=== PATIENT | female | born 1975 | race Caucasian/White ===

== ENCOUNTER 2021-06-29 11:40 | Outpatient (CLI) | payer BC, SELFPAY ==
[2021-06-29 12:12] LABS: Hematocrit 39.3 % (37.0-47.0); Hemoglobin 13.9 g/dL (12.0-15.0); Mean Corpuscular HGB Conc 35.4 g/dl (32-36); Mean Corpuscular Hemoglobin 30.8 pg (26-34); Mean Corpuscular Volume 86.9 fl (80-100); Mean Platelet Volume 10.1 fl (7.4-10.4); Platelet Count Result 258 k/mm3 (150-375); Red Blood Count 4.52 M/mm3 (4.2-5.4); Red Cell Distribution Width 12.1 % (11.5-14.5); White Blood Count 7.5 K/mm3 (4.5-10.0)
[2021-06-29 12:33] LABS: Anion Gap 9 mmol/L (8-16); Blood Urea Nitrogen 7 mg/dL (7-17); Calcium 9.4 mg/dL (8.4-10.2); Carbon Dioxide 28 mmol/L (22-30); Chloride 100 mmol/L (98-107); Estimated Glomerular Filt Rate > 60; Glucose 115 mg/dL (65-110); Potassium 3.7 mmol/L (3.4-5.0); Sodium 137 mmol/L (137-145)
[2021-06-29 12:51] LABS: Hemoglobin A1C 6.8 % (<5.7)
== END 2021-06-29 11:41 | disposition home or self-care (01) ==
PROVIDERS: PCP Internal Medicine; Visit Provider Surgery Plastic and Reconstructive Surgery
DX: Z01.812 Encounter for preprocedural laboratory examination (principal); Z51.81 Encounter for therapeutic drug level monitoring; Z79.899 Other long term (current) drug therapy
CPT/HCPCS: 36415; 80048; 83036; 85027

== ENCOUNTER 2021-07-27 08:32 | Outpatient (CLI) | payer BC, SELFPAY ==
--- NOTE | 2021-07-27 08:37 | ECG_ITS ---
Measurements Intervals [place] Rate: 74 P: 57 WV: 164 QRS: 57 QRSD: 96 T: 70 QT: 381 QTc: 424 Interpretive Statements SINUS RHYTHM NORMAL ECG Electronically Signed On 07-27-2021 10:43:40 CRANE HOOKER by Hernandez Lkae D.O.
== END 2021-07-27 08:33 | disposition home or self-care (01) ==
PROVIDERS: PCP Internal Medicine; Visit Provider Anesthesiology
DX: Z01.818 Encounter for other preprocedural examination (principal)
CPT/HCPCS: 93005

== ENCOUNTER 2021-08-05 02:55 | Day surgery (SDC) | payer OTHER, SELFPAY ==
[2021-08-01 14:27] VITALS: BMI 30.5
--- NOTE | 2021-08-01 14:32 | PC.NURSE ---
Report to the Outpatient Waiting Room, entrance under the green pavilion located off [facility], at time _0600 on date 08/05/21 . OR Time: . - You and your visitor will be asked a series of questions to screen for COVID 19 for your protection. - A mask is required within the hospital. Preoperative COVID Testing Requirements: No COVID Test needed if: (proof is required; if not received patient will have Rapid Test prior to entry) - Patient has received COVID Vaccine at least 14 days prior to procedure date or - Patient has positive COVID test result within last 90 days of surgery date. COVID Test needed if above criteria is not met If not COVID vaccinated a COVID test must be conducted within 72 hours of surgery and patient is asked to isolate self from time of testing until procedure. You will go to the [facility] for your COVID testing. The [facility] is located at the corner of [address] [facility]. You will only be called if COVID results are positive and your surgeon may reschedule your elective surgery date. Patients may have clear liquids (water, carbonated beverages, clear teas, apple juice) until 3 hours prior to surgery with a maximum of 20 ounces. - No food from midnight until time of surgery - Infants may have breast milk until 4 hours before surgery, infant formula 6 hours prior to surgery. - Children will be allowed to drink immediately following surgery. If applicable, please bring a bottle or sippy cup to assist with drinking. Juice, water, soda, and popsicles are readily available. For infants on formula, please bring formula the day of surgery. Pacifiers are allowed. Take the following medications with a SIP of water the morning of surgery: ___NONE Medications to discontinue per physician NONE Date to take last dose Please no make-up, nail barbadian, hairspray, perfume, deodorant, or body powder the day of surgery. No jewelry (including any body piercings) or valuables the day of surgery, leave them at home. Please take a shower or bath the night before, or the morning of, surgery with an antibacterial soap. Wear comfortable, loose fitting clothing. Children are encouraged to wear pajamas. - Jewelry must be removed prior to entering the operating room. Rings and piercings that are not removed may be cut off. - The hospital will not accept responsibility for valuables. - Please leave all valuables, including medications, at home the day of surgery. If you are going home after surgery, a licensed high lift driver must drive you home. - NO public transportation without another adult. - We recommend that an adult stay with you for 24 hours following discharge. - We also recommend that you do not drive, make important decision, drink alcoholic beverages, or take any drugs that were not prescribed by your health care provider for at least 24 hours after your discharge time. For Pediatric surgeries, we recommend two adults accompany the child home (only one inside the building at this time). One visitor will be allowed to accompany the patient into the hospital. Patients visitor will be instructed to remain with patient at all times or leave the building. We will allow the visitor to come back to the postoperative area when patient is ready. Follow any additional instructions given to you from your surgeon. Telephone instructions given to __PATIENT and asked if any additional questions and then verbalized understanding. Patient advised to call surgeon office or pre surgery nurse liaison [phone] if any additional questions.
[2021-08-05] VITALS (10 sets, daily range): BP systolic 119–156; BP diastolic 67–96; PULSE 80–102; RESP 10–18; TEMP 35.9–36.8; O2SAT 95–100
--- NOTE | 2021-08-05 06:35 | P.PNAN_ITS ---
Anes - Initial Pre Proc Eval Procedure: Operation Date: 08/05/21 07:30 Proposed Procedures p Abdominoplasty, - Kyle Bojorquez MD s Liposuction Abdomen - Kyle Bojorquez MD Date/Time: 08/05/21 06:35 Surgeon: Kyle Bojorquez MD Pre Op Diagnosis: skin laxity, localized adiposity Patient Data Age: 46 Gender: F Height: 1.63 m Weight: 80.75 kg Allergies Allergy/AdvReac Type Severity Reaction Status Date / Time hydrocodone Allergy Unknown Itching Verified 08/05/21 06:36 Home Medications Medication Instructions Recorded Confirmed Type metformin 1,000 mg tablet 1,000 mg PO DAILY 01/06/21 08/01/21 History dulaglutide [Trulicity] 1.5 mg SUBCUT WEEKLY 07/18/21 08/01/21 History furosemide 20 mg PO PRN PRN 07/18/21 08/01/21 History glimepiride 1 mg PO QAM 07/18/21 08/01/21 History hydrochlorothiazide 12.5 mg PO DAILY 07/18/21 08/01/21 History lisinopril 20 mg PO DAILY 07/18/21 08/01/21 History rosuvastatin 10 mg PO DAILY 07/18/21 08/01/21 History carisoprodol 350 mg tablet 350 mg PO TID PRN #21 tablet 07/20/21 08/01/21 Rx docusate sodium 100 mg capsule 100 mg PO DAILY #14 cap 07/20/21 08/01/21 Rx ondansetron HCl 4 mg tablet 4 mg PO Q8H #21 tablet 07/20/21 08/01/21 Rx oxycodone-acetaminophen 5 mg-325 1 tablet PO Q6H PRN #30 tablet 07/20/21 08/01/21 Rx mg tablet Patient hx anesthesia problems: none Family hx anesthesia problems: none Results Review: All pre-operative results and documents have been reviewed as part of the pre-operative evaluation. [facility] Past Medical History Medical History (Updated 08/05/21 @ 06:36 by Nathan Stevenson MD) HTN (hypertension) Hyperlipidemia Surgical History Surgical History (Updated 08/05/21 @ 06:36 by Nathan Stevenson MD) History of cholecystectomy Hx of breast augmentation Hx of carpal tunnel repair Family History Family History Other Diabetes mellitus Heart disease Social History Social History Smoking status: Never smoker Alcohol intake: current Drinks per week: 2 Substance use type: does not use Living arrangements: with family Spiritual care concerns: No Anes - Eval Final PreProcedure Day of Procedure 08/05/21 06:35 Patient weight: obese Heart: regular rate and rhythm Lungs: clear to auscultation Airway: Mallampati scale class II Neurological: alert and oriented Last oral intake: >/= 8 hours ASA classification: III Emergent: no Anesthetic plan: proceed Anesthesia type and monitoring: general ETT and standard monitoring Results Review: All pre-operative results and documents have been reviewed as part of the pre-operative evaluation. Informed Consent: The patient's anesthetic plan and its attendant risks and benefits were discussed with the patient/family/POA. Questions were solicited and answers provided to the satisfaction of the patient/family/POA.
[2021-08-05 06:46] LABS: Urine Cotinine NEGATIVE
[2021-08-05 06:50] LABS: Glucose Point of Care 138 mg/dl (65-105)
[2021-08-05] MEDS: LACTATED RINGERS 1,000 ML 30 ML IV CONT (06:50)
--- NOTE | 2021-08-05 07:10 | WPDHPUPDATE1 ---
History and Physical Update Update Date/Time: 08/05/21 07:10 History and Physical has been reviewed, including an updated exam of the patient. There are NO changes in the patient's condition. Risks, benefits, and alternatives have been discussed and questions answered. Patient agrees to proceed with procedure.
--- NOTE | 2021-08-05 07:10 | W.PM.PROC2 ---
Procedure Note - Detailed Date of Procedure 08/05/21 Pre-op Diagnosis skin laxity, localized adiposity Post-op Diagnosis Same Procedure Performed 1. Progressive tension abdominoplasty. 2. Suction lipectomy abdomen / flank Surgeon Kyle Bojorquez MD Findings Lipoaspirate 3250 cc Tissue removed 1721 grams Description of Procedure They are here today for abdominoplasty / suction lipectomy. Previously and again today the risks, benefits, alternatives were discussed in extensive detail. I wanted them to be very realistic about the risks involved as well as expectations. She understands that she has significant visceral adiposity which will not be addressed by this procedure. We discussed aftercare and what to monitor for. I was very upfront about the risks of wound breakdown leading to loss of skin, open wounds, and need for additional procedures with permanent abdominal deformity. We discussed DVT/PE risks and management. This was a lengthy discussion making sure she knows her options, literature, and her participation. Made sure answered all of their questions to their satisfaction today and consent was obtained. They were marked in the preoperative holding area with their verification. The patient was taken to the operating room placed supine on the operating table. Anesthesia was provided by anesthesiology. A Schumacher catheter was started. They were prepped and draped in a standard sterile fashion in a 360 degree prep.. A surgical time-out was taken. I placed the patient in a flexed position to verify the upper and lower markings would reach. I then placed supine. A thorough abdominal examination was completed. Stab incisions were made and tumescent solution infiltrated. Suction lipectomy was completed of abdomen / flank based on S.A.F.E. technique using a 5mm basket cannula to a rolling pinch test and based on pre-operative planning. She was turned in lateral decubitus position during this procedure to maximize contour with care taken to protect patient during turns. A 10 blade was used to make the upper incision. I continued dissection down to the level of fascia. Elevated just what was necessary for repair of the diastasis. I then again flexed the bed to verify the upper skin flap would reach the lower markings without tension. Once verified I placed her supine once again and a 10 blade used to make the lower incision. I elevated up to level the umbilicus and left the umbilicus intact on a well-vascularized stalk. The intervening tissue was removed. A 2 mm blunt cannula with 0.5% bupivicaine was injected deep to the fascia bilaterally. I plicated the diastasis recti using 0 PDO stratafix barbed suture. This was in 2 separate layers using 2 separate sutures as well. I repaired around the umbilicus leaving plenty of room for well-vascularized stalk of the umbilicus with 2-0 PDS. I also repaired lateral to the rectus using two layers of 0 PDO stratafix. The patient was flexed and starting from superior to inferior began plication using 2-0 Vicryl to obliterate all space in a standard progressive tension fashion. At the umbilicus I marked out the location of the skin and inset this with 3-0 Monocryl and 4-0 Vicryl. I continued the remainder of the plication using 2-0 Vicryl until I reached my lower planned scar line. I trimmed any excess skin of the upper flap making sure this was a tension-free closure. I then approximated using a 3 point suture with 2-0 Vicryl followed by 3-0 stratafix ,running subcuticular 4-0 Monocryl, and tissue glue. Fluffs and an abdominal binder were placed. The patient was transferred to the bed in a flexed position. Awoken and taken to the PACU without difficulty. All instrument and sponge counts were correct at the end of the case. Estimated Blood Loss 75 Drains No Packing No Pathology None sent Complications No immediate complications Condition Stable Disposition PACU
[2021-08-05] MEDS: TRANEXAMIC ACID 1,000MG/ISO100 1,000 MG/100 ML BAG 200 MG IVPB (07:13)
[2021-08-05] MEDS: ceFAZolin 2 GM/D5W 50 ML 2 GM/50 ML BAG IVPB (07:28)
[2021-08-05] MEDS: LACTATED RINGERS IRRIG 1,000 ML, LIDOCAINE HCL 1% LOCAL INJ 50 ML, EPINEPHrine HCL INJ ... INFILTRATE ×2 (07:28→10:53)
[2021-08-05] MEDS: BUPIVACAINE/EPINEPHRINE 0.25% 10 ML VIAL 60 ML INFILTRATE (10:30)
[2021-08-05] MEDS: TRANEXAMIC ACID 1,000 MG/10 ML AMPUL 1000 MG IV PUSH (11:23)
[2021-08-05] MEDS: ceFAZolin SODIUM 1 GM VIAL IV PUSH (11:23)
--- NOTE | 2021-08-05 12:14 | SUR.PHASEI ---
1209: Simple mask removed.
[2021-08-05] MEDS: ONDANSETRON INJ 4 MG/2 ML VIAL IV PUSH (12:41)
[2021-08-05] MEDS: oxyCODONE HCL (*CRX) 5 MG TAB IR PO (13:24)
[2021-08-05 13:36] LABS: Glucose Point of Care 186 mg/dl (65-105)
[2021-08-05] MEDS: diphenhydrAMINE HCl INJ 50 MG/ML VIAL 25 MG IV PUSH (13:51)
[2021-08-05] MEDS: SCOPOLAMINE 1.5 MG PATCH TRANSDERM (13:54)
== END 2021-08-05 14:40 | disposition home or self-care (01) ==
PROVIDERS: PCP Internal Medicine; Visit Provider Surgery Plastic and Reconstructive Surgery
PROC: (CPT 15877; principal; 2021-08-05 07:30)
PROC: (CPT 15877; 2021-08-05 07:30)
DX: Z41.1 Encounter for cosmetic surgery (principal); L57.4 Cutis laxa senilis; E65 Localized adiposity; I10 Essential (primary) hypertension; E78.5 Hyperlipidemia, unspecified; E66.9 Obesity, unspecified; Z68.31 Body mass index [BMI] 31.0-31.9, adult; Z79.899 Other long term (current) drug therapy; Z79.84 Long term (current) use of oral hypoglycemic drugs
CPT/HCPCS: 15877; 15830; 15847; 80307; 82948; A9270; J0171; J0690; J1100; J1170; J1200; J2250; J2405; J2704; J3010; J7120

== ENCOUNTER 2024-11-11 14:27 | Outpatient (CLI) | payer BC, SELFPAY ==
--- NOTE | ~2024-11-11 | US_ITS ---
EXAMINATION: US carotid duplex BI DATE: 11/11/2024 15:05 INDICATION: Right carotid bruit TECHNIQUE: Grayscale, color Doppler, and pulsed Doppler images of the cervical carotid arteries were obtained. The degree of vessel stenosis is placed in one of the following categories: normal, <50%, 5 0-69%, >=70% but less than near-occlusion, near-occlusion, or total occlusion. Note that percent sten osis relative to normal distal artery lumen diameter is indirectly measured from velocity measurement s as described by Robert, et al. Radiology 2003; 229:340-346. Notes: Normal: Peak systolic velocity <125 centimeters/sec and no plaque <50%. Peak systolic velocity <125 ( EDV <40; ICA/CCA PSV ratio <2.0; used these factors only a tandem lesions or low cardiac output or co ntralateral disease) 50-69 %: PSV 125-230 (EDV 40-100; ratio 2-4) >= 70% but less than near occlusion: PSV greater than 230 (EDV > 100; ratio> 4.0) Near Occlusion: PSV that is variable; markedly narrowed lumen Occlusion: Absent flow on color/spectral Doppler and no lumen on rollins scale. COMPARISON: None. FINDINGS: RIGHT: The right common carotid artery (CCA) peak systolic velocity (PSV) is 72 cm/s. The right internal car otid artery (ICA) PSV is 82 cm/s. The right ICA end-diastolic velocity (EDV) is 39 cm/s. The right IC A/CCA PSV ratio is 1.1. The external carotid artery (ECA) PSV is 95 cm/s. There is antegrade flow in the right vertebral artery. LEFT: The left CCA PSV is 66 cm/s. The left ICA PSV is 87 cm/s. The left ICA EDV is 39 cm/s. The left ICA/C CA PSV ratio is 1.3. The ECA PSV is 122 cm/s. There is antegrade flow in the left vertebral artery. IMPRESSION: 1. Less than 50% stenosis in the right internal carotid artery by sonographic criteria. 2. Less than 50% stenosis in the left internal carotid artery by sonographic criteria. Reviewed, dictated and finalized at location B. IMPRESSION: 1. Less than 50% stenosis in the right internal carotid artery by sonographic c mason. 2. Less than 50% stenosis in the left internal carotid artery by sonographic cr haley.
--- OUTSIDE RECORDS SUMMARY | 2024-11-11 15:57 | XMS_ITS | Clinical Summary ---
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 Name Role Phone Aidan Harris MD Primary Care Provider Juliana Nguyen MD Unavailable [phone] Allergies No known active allergies Medications glimepiride (AMARYL) 1 mg tabletIndicatio ns:type 2 diabetes mellitus 0 9 Active hydroCHLOROthia zide (HYDRODIURIL) 12.5 mg tablet 2 9 Active lisinopril (PRINIVIL,ZESTR IL) 20 mg tablet TK 1 T PO BID 4 8 Active JANUVIA 100 mg tabletIndicatio ns:type 2 diabetes mellitus 3 9 Active metFORMIN (GLUCOPHAGE) 1,000 mg tablet TK 1 T PO BID 3 9 Active OneTouch Ultra Blue Test Strip strip USE TO TEST BLOOD SUGAR ONCE DAILY 9 Active rosuvastatin (CRESTOR) 10 mg tablet TK 1 T PO QD 9 Active estradiol-noret hindrone (ACTIVELLA) 1-0.5 mg per tablet Take 1 tablet by mouth daily [address] (PROTONIX) 40 mg EC tablet Take 1 tablet (40 mg total) by mouth daily 4 Active pravastatin (PRAVACHOL) 40 mg tablet take 1 tablet (40 mg) by oral route once daily Oral 1 Active Ozempic 2 mg/dose (8 mg/3 mL) pen injector injection INJECT SUBCUTANEOUS 2MG ONCE A WEEK 4 Active Active Problems Problem Noted Date Diagnosed Date Fibrocystic breast changes of both breasts 03/05 Surgical History Surgery Date Site/Laterality Comments MO BREAST AUGMENTATION WITH IMPLANT Breast Surgery Enlargement Procedure With Prosthetic Implant - (Added by TW Conv) MO CHOLECYSTECTOMY Cholecystectomy - (Added by TW Conv) Family History Medical History Relation Name Comments Breast cancer Mother's Sister Diabetes type II Other 1 Type II Mikki betes Mellitus - (Added by TW Conv) Hypertension Other 2 Hypertension - (Added by TW Conv) Heart disease Other 3 Heart Disease - (Added by TW Conv) Thyroid disease Other 4 Thyroid Diso rder - (Added by TW Conv) Relation Name Status Comments Mother's Sister Other 1 Other 2 Other 3 Other 4 Social History Tobacco Use Types Packs/Day Years Used Date Smoking Tobacco: Never Smokeless Tobacco: Never Tobacco Cessation:Counseling Given: Not Answered Alcohol Use Standard Drinks/Week Comments Yes 0 (1 standard drink = 0.6 oz pur e alcohol) rarely Comments Unknown Sex and Gender Information Value Date Recorded Sex Assigned at Not on file Legal Sex Female 10:53 PM RN 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 Gender Identity Not on file Sexual Orientation Not on file Obstetrics History Last Filed Vital Signs Vital Sign Reading Time Taken Comments Blood Pressure 130/86 01/22/2024 9:01 AM CDT Pulse 87 01/22/2024 9:01 AM CDT Temperature - - Respiratory Rate - - Oxygen Saturation - - Inhaled Oxygen Concentration - - Weight 71.7 kg (158 lb) 01/22/2024 9:01 AM CDT Height 165.1 cm (5' 5) 01/22/2024 9:01 AM CDT Body Mass Index 26.29 01/22/2024 9:01 AM CDT Plan of Treatment Health Maintenance Due Date Last Done Comments Cervical Cancer Screening 1974 Colon Cancer Screening-Colonoscopy 1974 Depression Screening 1974 Hepatitis C Screening 1974 DTaP/Tdap/Td Vaccine (1 - Tdap) 1985 Hepatitis B Screening 1992 Regular Well Visit/Exam 18-64 1992 Zoster Vaccine (1 of 2) 2024 Influenza Vaccine (Season Ended) 2025 05/03/2023, 03/29/2019, 04/02/2018 Breast Cancer Screening-Mammogram 02/11/2025 02/12/2024, 12/08/2022, 10/27/2021, Additional history exists Pneumococcal vaccine <65 Aged Out No longer eligible based on patient's age to complete this topic Procedures Procedure Name Priority Date/Time Associated Diagnosis Comments SCREENING MAMMOGRAM BILATERAL W SEGUNDO W IMPLANTS Schedule Routine, Read Routine (OP Routine) 02/12/2024 8:00 AM CDT Screening mammogram, encounter for from Last 3 Months or Most Recently Relevant to Health Maintenance Results * Screening Mammogram Bilateral W Segundo W Implants (02/12/2024 8:00 AM CDT) Anatomical Region Laterality Modality Breast Bilateral Mammography Narrative 02/13/2024 9:47 AM CDT Mammogram Technique: Bilateral Digital Breast Tomosynthesis, Bilateral C-view 2D Screening mammogram. Views obtained: bilateral craniocaudal; bilateral craniocaudal implant displaced; bilateral mediolateral oblique; and bilateral mediolateral oblique implant displaced. Computer Aided Detection was performed. Mammogram Findings: The present examination has been compared to prior imaging studies performed at [facility] on 08/01/2019, 08/11/2019, 09/08/2020, 10/27/2021 and 12/08/2022. There are scattered areas of fibroglandular density. There are bilateral sub-glandular saline implants. There are calcifications in both breasts. There are no significant changes from the prior study. There is no suspicious abnormality in either breast. Impression: There is no mammographic evidence of malignancy. Annual screening mammography is recommended. OVERALL FINAL ASSESSMENT: BI-RADS CATEGORY 2: Benign. Procedure Note Haven Hebert MD - 02/13/2024 Mammogram Technique: Bilateral Digital Breast Tomosynthesis, Bilateral C-view 2D Screening mammogram. Views obtained: bilateral craniocaudal; bilateralcraniocaudal implant displaced; bilateral mediolateral oblique; and bilateral mediolateral oblique implant displaced. Computer Aided Detection was performed. Mammogram Findings: The present examination has been compared to prior imaging studies performed at [facility] on 08/01/2019, 08/11/2019,09/08/2020, 10/27/2021 and 12/08/2022. There are scattered areas of fibroglandular density. There are bilateral sub-glandular saline implants. There are calcifications in both breasts. There are no significantchanges from the prior study. There is no suspicious abnormality in either breast. Impression: There is no mammographic evidence of malignancy. Annual screening mammography is recommended. OVERALL FINAL ASSESSMENT: BI-RADS CATEGORY 2: Benign. 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
--- OUTSIDE RECORDS SUMMARY | 2024-11-11 15:57 | XMS_ITS | Referral Summary ---
Author Organization [facility] Address [address] [place] [address] Care Team Providers Care Sand Analyst Name Role Phone Aidan Harris MD Primary Care Provider Juliana Nguyen MD Unavailable [phone] Allergies No known active allergies Medications glimepiride [...] Fibrocystic breast changes of both breasts 03/05 Social History Tobacco Use Types Packs/Day Years Used Date Smoking Tobacco: Never Smokeless Tobacco: Never Tobacco Cessation:Counseling Given: Not Answered Alcohol Use Standard Drinks/Week Comments Yes 0 (1 standard drink = 0.6 oz pur e alcohol) rarely Comments Unknown Sex and Gender Information Value Date Recorded Sex Assigned at Not on file 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 [...] Most Recently Relevant to Health Maintenance Insurance [facility] Care Teams Sand Analyst Relationship Specialty Start Date End Date Aidan Harris MD PCP - General 02/21/17 Juliana Nguyen MD [address] [address] Referring Physician Gynecology 10/27/21
--- OUTSIDE RECORDS SUMMARY | 2024-11-11 15:57 | XMS_ITS | Patient Health Record ---
Author Organization [facility] Address [address] [place] [address] Care Team Providers Care Cena Name Role Phone Aidan Harris MD Primary Care Provider Marlon Vizcarra MD Unavailable Unavailable Reason For Referral No Information Medications Medication SIG (Take, Route, Frequency, Duration) Notes Start Date End Date Status hydroCHLOROthiazide Active Glimepiride Active metFORMIN HCl Active Livalo Active OTC/Vitamins Vitamin D, Potassium Cholride, Magnesium Active Lisinopril Active Social History Tobacco Use: Social History Observation Description Date Details (start date - stop date) Never Smoker NA - NA Tobacco Use/Smoking Question Answer Notes Are you a nonsmoker Problems Problem Type SNOMED Code ICD Code Onset Dates Problem Status W/U Status Risk Notes Problem 096757582 Fatty liver (K76.0) Active confirmed Problem 126615083 Elevated transaminase level (R74.0) Active confirmed Problem 529530989 Type 2 diabetes mellitus without complication, without long-term current use of insulin (E11.9) Active confirmed Problem 941833090829656 Obesity (BMI 30.0-34.9) (E66.9) Active confirmed Plan Of Treatment Pending Test Test Name Order Date TISSUE TRANSGLUTAMINASE AB, IGA 03/28/20 17 [id number] 03/28/2017 CERULOPLASMIN 03/28/2017 ACTIN (SMOOTH MUSCLE) ANTIBODY (IGG) FERRITIN 03/28/2017 Immunoglobulin A, Qn, Serum 03/28/2017 Antinuclear Antibodies Direct 03/28/2017 t-Transglutaminase (tTG) IgG 03/28/2017 Hepatic Function 03/28/2017 Insurance Providers Payer Name Payer Address Payer Phone Subscriber Number Group Number Insured Name Patient Relationship to Insured Coverage Start Date Coverage End Date [employer] PPO E2 [address] [place] [address] [id number] Ifeanyi Jackson Spouse - patient is the spouse of the insured Medical (General) History Medical History History ICD Code High blood Pressure Diabetes Elevated liver enzymes Surgical History Surgery Date(Month/Year) Carpal Tunnel D&C Tubal Ligation Breast Augmentation Cholecystectomy
--- OUTSIDE RECORDS SUMMARY | 2024-11-11 15:57 | XMS_ITS | Patient Health Record ---
Author Organization [facility] Address [address] [place] [address] Support Name Relationship Address Phone Prudence Jackson Guarantor Unknown Allergies No Known Allergies Reason For Referral No Information Medications Medication SIG (Take, Route, Frequency, Duration) Notes Start Date End Date Status Pravastatin Sodium 40 MG take 1 tablet ( 40 mg) by oral route once daily Oral 1 Active Lisinopril 20 MG take 1 tablet (20 mg ) by oral route once daily Oral 1 Active hydroCHLOROthiazide 12.5 MG take 1 table t (12.5 mg) by oral route 2 times per day Oral 2 Active Problems Problem Type SNOMED Code ICD Code Onset Dates Problem Status W/U Status Risk Notes Problem Essential hypertensi on (56105438) Essential (primary) hypertension (I10) Active confirmed Problem Pure hypercholesterolemia (269625445) Pure hypercholester olemia, unspecified (E78.00) Active confirmed Plan Of Treatment No Information Insurance Providers Payer Name Payer Address Payer Phone Subscriber Number Group Number Insured Name Patient Relationship to Insured Coverage Start Date Coverage End Date [place] [address] [place] [address] [id number] Prudence Jackson Self - patient is the insured 3 Medical (General) History Surgical History Surgery Date(Month/Year) Carpal tunnel release; 2012-10-31 Tubal ligation; 2012-10-31 cholecystectomy; 2012-10-31
--- OUTSIDE RECORDS SUMMARY | 2024-11-11 15:57 | XMS_ITS | Data Portability ---
Author Organization [place] [facility] [employer], Main Office [place] [address] [place] [address] Assessment No assessment recorded. Plan of Treatment Reminders Order Date Submit Date Provider Last Modified By Organization Details Last Modified Time Details Appointments None recorded. Lab lipoprotein (A), serum 2024 025 [facility], [address] , [place], [address], 5 09:58:41 vitamin B12 + folate, serum or blood 2024 025 [email or web address] [facility], [address], [place], [address], 5 09:58:41 vitamin D, 25-hydroxy, total, serum 2023 024 [id number] [facility], [address], [place], [address], 4 16:05:46 HbA1c (hemoglobin A1c), blood 2023 024 [id number] [facility], [address], [place], [address], 4 16:05:46 microalbumi n, urine 2023 024 [id number] [facility], [address], [place], [address], 4 16:05:46 lipid panel, serum 2023 024 [id number] [facility], [address], [place], [address], 4 16:05:45 CMP, serum or plasma 2023 024 [facility], [address], [place], [address], 4 16:05:45 TSH, serum or plasma 2023 024 [id number] [facility], [address], [place], [address], 4 16:05:45 T4, free, serum 2023 024 [facility], [address], [place], [address], 4 16:05:45 CBC w/ auto diff 2023 024 [id number] [facility], [address], [place], [address], 4 16:05:45 lipid panel, serum 2022 023 [facility], [address], [place], [address], 3 17:03:11 CMP, serum or plasma 2022 023 [facility], [address], [place], [address], 3 17:03:11 TSH, serum or plasma 2022 023 [id number] [facility], [address], [place], [address], 3 17:03:11 T4, free, serum 2022 023 [id number] [facility], [address], [place], [address], 3 17:03:11 CBC w/ auto diff 2022 023 [facility], [address], [place], [address], 3 17:03:12 HbA1c (hemoglobin A1c), blood 2022 023 [id number] [facility], [address], [place], [address], 3 17:03:12 microalbumi n/creatinin e, mass ratio, urine 2022 023 [id number] [facility], [address], [place], [address], 3 17:03:12 Referral None recorded. Procedures None recorded. Surgeries None recorded. Imaging None recorded. Medication Orders methylpredn isolone 4 mg tablets in a dose pack [address] [facility] [address] [place] [address] [id number], [address], [place], [place], [id number], 4 10:36:17 Patient TargetsNo targets recorded. Patient Instructions Encounter Date Encounter Id Patient Instructions Last Modified By Organization Details Last Modified Time 05/03/2023 [id number] risk assessment* [email or web address] Not availabl e 05/03/2023 11:45:39 INFLUENZA VACCIN E Recommended today, but patient declined Ordered Yash lima will get at local pharmacy/health department Patient has egg allergy Next vaccination to be given fall of Next vaccination to be given fall of __ TD/TDAP Patient will get at local pharmacy/health department PNEUMONIA VACCINE Recommended at age 65 SHINGLES Patient will get at local pharmacy/health department MAMMOGRAM: Last Mammogram No screening necessary patient is up to date DEXA SCAN No screening indicated CERVICAL SCREENING/PELVIC EXAMINATION No screening necessary patient is up to date COLORECTAL SCREENING: Last Colonoscopy No screening necessary patient is up to date DEPRESSION SCREENING Negative BMI Overweight try to lose 10% of your body weight NUTRITION Heart Healthy Diet PHYSICAL ACTIVITY Need more exercise/physical activity VISION Recommended today ALCOHOL USE Occasional/Social Use TOBACCO USE non smoker LUNG CANCER SCREENING Non Smoker-not indicated SEXUALLY ACTIVE HEPATITIS C SCREENING Not indicated GLUCOSE SCREENING Ordered Not needed Known Diabetic up to date LIPID SCREENING Ordered Not needed Diagnosis of Hyperlipidemia up to date [email or web address] Not available 05/03/2023 11:31:16 Wellness evaluat ion risk assessment stable. Follow-up for hypertension-type 2 diabetes- hyperlipidemia. Clinically stable. Doing well otherwise hemoglobin A1c is under good control. Last one was 6.3 recent cholesterol is 134 HDL 49 LDL of 50. Will continue on current Rx. Check blood work consisting of CBC, CMP, lipid, thyroid, hemoglobin A1c and microalbumin. Continue on current Rx and follow-up in six months. Portions of the record may have been created with voice recognition software. Occasional wrong-word or qtabc-n-osut substitutions may have occurred due to the inherent limitations of voice recognition software. Read the chart carefully and recognize, using context, where substitutions have occurred. [email or web address] Not available 05/03/2023 11:45:18 10/31/2023 [id number] Essential hypertension, hyperlipidemia and type 2 diabetes all clinically stable doing well. Will continue on current medications. Will check blood work on next visit. Is followed on a regular basis by her stitcher special machine. Will continue on current medications. Follow-up in six months. Next Appointment: 6 Months Approximate Date: 04/28/2024 Portions of the record may have been created with voice recognition software. Occasional wrong-word or joidi-z-fjir substitutions may have occurred due to the inherent limitations of voice recognition software. Read the chart carefully and recognize, using context, where substitutions have occurred. [email or web address] Not available 10/31/2023 11:09:00 01/02/2024 [id number] Possible trigemi nal neuralgia. Will give trial of a Medrol Dosepak. If no improvement will need to consider further evaluation possibly implementing on additional medication more specific for trigeminal neuralgia. Will check a sedimentation rate even though she has no other findings suggestive of temporal arteritis. Additional Orders and/or Directives: 1. If any rash beginning to recur or the pain becomes more severe let us know immediately. Keep Appointment: Sun 09:40 AM [place] Portions of the record may have been created with voice recognition software. Occasional wrong-word or zkmid-f-wwjw substitutions may have occurred due to the inherent limitations of voice recognition software. Read the chart carefully and recognize, using context, where substitutions have occurred. [email or web address] Not available 01/02/2024 10:19:42 04/30/2024 [id number] Follow-up for hypertension, hyperlipidemia, type 2 diabetes, GERD. All clinically stable. Does need a Cologuard test. Check a CBC, CMP, lipid, thyroid, vitamin-D level, hemoglobin A1c and microalbumin. Was given a flu shot today. Otherwise doing well. Will continue on current medications follow-up in six months. Additional Orders - Directives - Recommendations 1. Cologuard Follow Up: 6 Months Approximate Date: 10/27/2024 Portions of the record may have been created with voice recognition software. Occasional wrong-word or zlipw-o-tkzs substitutions may have occurred due to the inherent limitations of voice recognition software. Read the chart carefully and recognize, using context, where substitutions have occurred. Created: Aidan Harris M.D. 04.30.2024 09:49 AM Not available 04/30/2024 10:50:00 10/22/2024 [id number] [facility] follow-up welcome yearly exam as well as history of hypertension, hyperlipidemia type 2 diabetes. He is clinically stable. Do anything new on physical examination there is a questionable and I state questionable right carotid bruit. Does have a very stron family history of vascular disease including strokes fairly young ages. Will check a Doppler as well as a lipoprotein a level. Will also check a B12 since this also send been some generalized fatigue. Did have a thyroid exam back in July which was normal. Additional Orders - Directives - Recommendations 1. Carotid ultrasound for faint right carotid bruit Follow Up: 4 Months Approximate Date: 02/19/2025 Portions of record are template driven. When necessary additional context will be provided. Additionally some portions have been created with voice recognition software. Occasional wrong-word or bxygu-r-chsx substitutions may have occurred due to the inherent limitations of voice recognition software. Read the chart carefully and recognize, using context, where substitutions may have occurred. Created: Aidan Harris M.D. 10.22.2024 10:25 AM [email or web address] Not available 10/22/2024 11:25:09 Reason for Referral None Reported. Results Created Date Observation Date Name Description Value Unit Range Abnormal Flag Note LastModifiedBy Organization Detail LastModifiedTime 05/23/20 23 05/23/2023 CBC/C OMPLE TE BLD COUNT W/DIF F white blood cells 5.6 x10'3 /uL 4.2-10 .8 Not Available [facility] (Lab) [address] [place], [address], 05/23/2023 13:12:05 05/23/20 23 05/23/2023 CBC/C OMPLE TE BLD COUNT W/DIF F red blood cells 4.17 x10'6 /uL 3.80-5 .20 Not Available [facility] (Lab) [address] [place], [address], 05/23/2023 13:12:05 05/23/20 23 05/23/2023 CBC/C OMPLE TE BLD COUNT W/DIF F hemoglobin 12.8 g/dL 12.0-1 5.6 Not Available [facility] (Lab) [address] [place], [address], 05/23/2023 13:12:05 05/23/20 23 05/23/2023 CBC/C OMPLE TE BLD COUNT W/DIF F hematocrit 37.4 % 35.7-4 5.7 Not Available [facility] (Lab) [address] [place], [address], 05/23/2023 13:12:05 05/23/20 23 05/23/2023 CBC/C OMPLE TE BLD COUNT W/DIF F mean red cell volume 89.7 fL 82.0-9 9.0 Not Available [facility] (Lab) [address] [place], [address], 05/23/2023 13:12:05 05/23/20 23 05/23/2023 CBC/C OMPLE TE BLD COUNT W/DIF F mean red cell hemoglobin 30.7 pg 27.0-3 3.0 Not Available [facility] (Lab) [address] [place], [address], 05/23/2023 13:12:05 05/23/20 23 05/23/2023 CBC/C OMPLE TE BLD COUNT W/DIF F mean RBC HGB concentratio n 34.2 g/dL 31.0-3 6.0 Not Available [facility] (Lab) [address] [place], [address], 05/23/2023 13:12:05 05/23/20 23 05/23/2023 CBC/C OMPLE TE BLD COUNT W/DIF F red cell distribution width 12.1 % 11.8-1 5.5 Not Available [facility] (Lab) [address] [place], [address], 05/23/2023 13:12:05 05/23/20 23 05/23/2023 CBC/C OMPLE TE BLD COUNT W/DIF F platelets 225 x10'3 /uL 150-40 0 Not Available [facility] (Lab) [address] [place], [address], 05/23/2023 13:12:05 05/23/20 23 05/23/2023 CBC/C OMPLE TE BLD COUNT W/DIF F mean platelet volume 10.9 fL 9.0-12 .4 Not Available [facility] (Lab) [address] [place], [address], 05/23/2023 13:12:05 05/23/20 23 05/23/2023 CBC/C OMPLE TE BLD COUNT W/DIF F neutrophils 60.4 % 39.0-7 2.0 Not Available [facility] (Lab) [address] [place], [address], 05/23/2023 13:12:05 05/23/20 23 05/23/2023 CBC/C OMPLE TE BLD COUNT W/DIF F lymphocytes 32.0 % 16.0-4 7.0 Not Available [facility] (Lab) [address] [place], [address], 05/23/2023 13:12:05 05/23/20 23 05/23/2023 CBC/C OMPLE TE BLD COUNT W/DIF F monocytes 5.5 % 5.0-12 .0 Not Available [facility] (Lab) [address] [place], [address], 05/23/2023 13:12:05 05/23/20 23 05/23/2023 CBC/C OMPLE TE BLD COUNT W/DIF F eosinophils 1.4 % 1.0-7. 0 Not Available [facility] (Lab) [address] [place], [address], 05/23/2023 13:12:05 05/23/20 23 05/23/2023 CBC/C OMPLE TE BLD COUNT W/DIF F basophils 0.5 % 0.0-2. 0 Not Available [facility] (Lab) [address] [place], [address], 05/23/2023 13:12:05 05/23/20 23 05/23/2023 CBC/C OMPLE TE BLD COUNT W/DIF F immature granulocytes 0.2 % 0.00-0 .50 Not Available [facility] (Lab) [address] [place], [address], 05/23/2023 13:12:05 05/23/20 23 05/23/2023 CBC/C OMPLE TE BLD COUNT W/DIF F neutrophils, absolute count 3.39 x10'3 /uL 1.5-8. 0 Not Available [facility] (Lab) [address] [place], [address], 05/23/2023 13:12:05 05/23/20 23 05/23/2023 CBC/C OMPLE TE BLD COUNT W/DIF F lymphocytes, absolute count 1.80 x10'3 /uL 1.07-3 .43 Not Available [facility] (Lab) [address] [place], [address], 05/23/2023 13:12:05 05/23/20 23 05/23/2023 CBC/C OMPLE TE BLD COUNT W/DIF F monocytes, absolute count 0.31 x10'3 /uL 0.29-0 .99 Not Available [facility] (Lab) [address] [place], [address], 05/23/2023 13:12:05 05/23/20 23 05/23/2023 CBC/C OMPLE TE BLD COUNT W/DIF F eosinophils, absolute count 0.08 x10'3 /uL 0.02-0 .53 Not Available [facility] (Lab) [address] [place], [address], 05/23/2023 13:12:05 05/23/20 23 05/23/2023 CBC/C OMPLE TE BLD COUNT W/DIF F basophils, absolute count 0.03 x10'3 /uL 0.01-0 .08 Not Available [facility] (Lab) [address] [place], [address], 05/23/2023 13:12:05 05/23/20 23 05/23/2023 CBC/C OMPLE TE BLD COUNT W/DIF F immature granulocytes ,absolute 0.01 x10'3 /uL 0.00-0 .05 Not Available [facility] (Lab) [address] [place], [address], 05/23/2023 13:12:05 05/23/20 23 05/23/2023 CBC/C OMPLE TE BLD COUNT W/DIF F nucleated red blood cells 0.0 % -0 Not Available [facility] (Lab) [address] [place], [address], 05/23/2023 13:12:05 12/20/20 23 05/23/2023 CBC/C OMPLE TE BLD COUNT W/DIF F NRBC# 0.00 x10'3 /uL Not Available [facility] (Lab) [address] [place] [address], [address], 05/23/2023 13:12:05 05/23/20 23 05/23/2023 LIPID PANEL cholesterol 110 mg/dL 140-19 9 low NIH ITALO NSUS RECOM MENDA TION FOR CARLOS STERO L: ADULT CHILD LOW RISK: <200 <170 BORDE RLINE : <200- 239 ----- HIGH RISK: >240 >200 Not Available [facility] (Lab) [address] [place] [address], [address], 05/23/2023 13:25:07 05/23/20 23 05/23/2023 LIPID PANEL triglyceride s 110 mg/dL 0-150 NIH ITALO NSUS REPOR T RECOM MENDA TION FOR TRIGL YCERI TISHA: ADULT CHILD LOW RISK: <150 ----- BODER LINE: 150-1 99 ----- HIGH RISK: >200 ----- Not Available [facility] (Lab) [address] [place] [address], [address], 05/23/2023 13:25:07 05/23/20 23 05/23/2023 LIPID PANEL HDL cholesterol 40 mg/dL 40- Not Available [facility] (Lab) [address] [place] [address], [address], 05/23/2023 13:25:07 05/23/20 23 05/23/2023 LIPID PANEL LDL cholesterol, calculated 48 mg/dL 0-130 NIH ITALO NSUS REPOR T RECOM MENDA TIONS FOR LDL: ADULT CHILD LOW RISK <130 <110 (OPTI MAL LDL) <100 ----- BORDE RLINE : 130-1 59 ----- HIGH RISK: >160 >130 A TRIGL YCERI DE RESUL T >400 INVAL IDATE S THE CALCU LATIO N FOR LDL FRACT IONAT ION - THE LDL RESUL T WILL NOT BE REPOR SHARLENE. Not Available [facility] (Lab) [address] [place], [address], 05/23/2023 13:25:07 05/23/20 23 05/23/2023 COMPR EHENS RAMIREZ METAB OLIC PANEL sodium 140 mmol/ L 137-14 5 Not Available [facility] (Lab) [address] [place], [address], 05/23/2023 13:25:11 05/23/20 23 05/23/2023 COMPR EHENS RAMIREZ METAB OLIC PANEL potassium 4.0 mmol/ L 3.5-5. 1 Not Available [facility] (Lab) [address] [place], [address], 05/23/2023 13:25:11 05/23/20 23 05/23/2023 COMPR EHENS RAMIREZ METAB OLIC PANEL chloride 102 mmol/ L 98-107 Not Available [facility] (Lab) [address] [place], [address], 05/23/2023 13:25:11 05/23/20 23 05/23/2023 COMPR EHENS RAMIREZ METAB OLIC PANEL carbon dioxide 25 mmol/ L 22-30 Not Available [facility] (Lab) [address] [place], [address], 05/23/2023 13:25:11 05/23/20 23 05/23/2023 COMPR EHENS RAMIREZ METAB OLIC PANEL anion gap 17.0 mmol/ L 14-22 Not Available [facility] (Lab) [address] [place], [address], 05/23/2023 13:25:11 05/23/20 23 05/23/2023 COMPR EHENS RAMIREZ METAB OLIC PANEL glucose 118 mg/dL 70-99 high Not Available [facility] (Lab) [address] [place], [address], 05/23/2023 13:25:11 05/23/20 23 05/23/2023 COMPR EHENS RAMIREZ METAB OLIC PANEL BUN 9 mg/dL 8-19 Not Available [facility] (Lab) [address] [place], [address], 05/23/2023 13:25:11 05/23/20 23 05/23/2023 COMPR EHENS RAMIREZ METAB OLIC PANEL creatinine 0.67 mg/dL 0.66-1 .25 Not Available [facility] (Lab) [address] [place], [address], 05/23/2023 13:25:11 05/23/20 23 05/23/2023 COMPR EHENS RAMIREZ METAB OLIC PANEL GFR >60 Refer ence Range : [place] [facility] GFR Healt hy Adult : >60 mL/mi n/1.7 3 m2 Chron ic Kidne y Disea se: 15-60 mL/mi n/1.7 3 m2 Kidne y Failu re: <15/m L/min /1.73 m2 www.n iddk. nih.g ov The MDRD study equat ion has not been valid ated in child broderick <18 years of age; pregn ant women ; the elder ly >85 years of age; or in some racia l or ethni c subgr oups, such as de nics. Outsi de the valid ated chastity eters , estim ated GFR is less accur ate, requi ring clini mathew judgm ent on a case- by-ca se basis . Clini mathew inter preta tion for other races and ages must be made by the clini jimbo. The MDRD study equat ion has not been valid ated for the evalu ation of serum creat inine relat ed to nutri ciera l statu s or medic ation usage . For perso ns <18 years of age, a pedia tric GFR calcu lator is avail able on the F websi te: https ://keena w.alyssa gauthiery.o rg/pr ofess ional s/kdo qi/gf r_cal culat or Not Available [facility] (Lab) [address] [place], [address], 05/23/2023 13:25:11 05/23/20 23 05/23/2023 COMPR EHENS RAMIREZ METAB OLIC PANEL alkaline phosphatase 87 U/L 38-126 Not Available [facility] (Lab) [address] [place], [address], 05/23/2023 13:25:11 05/23/20 23 05/23/2023 COMPR EHENS RAMIREZ METAB OLIC PANEL alanine aminotransfe rase 34 U/L 0-35 Not Available [facility] (Lab) [address] [place], [address], 05/23/2023 13:25:11 05/23/20 23 05/23/2023 COMPR EHENS RAMIREZ METAB OLIC PANEL aspartate aminotransfe rase 35 U/L 15-37 Not Available [facility] (Lab) [address] [place], [address], 05/23/2023 13:25:11 05/23/20 23 05/23/2023 COMPR EHENS RAMIREZ METAB OLIC PANEL bilirubin, total 1.00 mg/dL 0.20-1 .30 Not Available [facility] (Lab) [address] [place], [address], 05/23/2023 13:25:11 05/23/20 23 05/23/2023 COMPR EHENS RAMIREZ METAB OLIC PANEL calcium 9.6 mg/dL 8.4-10 .2 Not Available [facility] (Lab) [address] [place], [address], 05/23/2023 13:25:11 05/23/20 23 05/23/2023 COMPR EHENS RAMIREZ METAB OLIC PANEL total protein 7.7 g/dL 6.3-8. 2 Not Available [facility] (Lab) [address] [place], [address], 05/23/2023 13:25:11 05/23/20 23 05/23/2023 COMPR EHENS RAMIREZ METAB OLIC PANEL albumin 4.5 g/dL 3.4-5. 0 Not Available [facility] (Lab) [address] [place], [address], 05/23/2023 13:25:11 05/23/20 23 05/23/2023 COMPR EHENS RAMIREZ METAB OLIC PANEL globulin 3.2 g/dL 2.6-4. 2 Not Available [facility] (Lab) [address] [place], [address], 05/23/2023 13:25:11 05/23/20 23 05/23/2023 COMPR EHENS RAMIREZ METAB OLIC PANEL A/G ratio 1.4 ratio 1.0-2. 0 Not Available [facility] (Lab) [address] [place], [address], 05/23/2023 13:25:11 05/23/20 23 05/23/2023 T4 FREE free T4 1.06 NG/dL 0.78-2 .19 Not Available [facility] (Lab) [address] [place], [address], 05/23/2023 13:33:29 05/23/20 23 05/23/2023 TSH thyroid-stim ulating hormone 1.980 uIU/m L 0.465- 4.680 Not Available [facility] (Lab) [address] [place], [address], 05/23/2023 13:34:50 05/23/20 23 05/23/2023 HEMOG LOBIN A1C HA1C 5.5 % 4.0-6. 0 Diabe jessica Scree carlo Crite jim: <5.7% Consi stent with absen ce of diabe jessica 5.7-6 .4% Consi stent with incre ased risk for diabe jessica (pred iabet es) >OR=6 .5% Consi stent with diabe jessica REFER ENCE: Diabe jessica Care 2016, 39(Tay ppl.1 ):s13 -s22 Not Available [facility] (Lab) [address] [place], [address], 05/23/2023 14:46:10 05/23/20 23 05/23/2023 MICRO ALBUM N RNDM W/CRE AT RATIO ur creat 312.50 mg/dL REFER ENCE RANGE NOT ESTAB LISHE D FOR RANDO M URINE CREAT ININE Not Available [facility] (Lab) [address] [place], [address], 05/23/2023 20:05:31 05/23/20 23 05/23/2023 MICRO ALBUM N RNDM W/CRE AT RATIO microalbumin , urine 19.7 mg/L 0.0-16 .6 high Not Available [facility] (Lab) [address] [place], [address], 05/23/2023 20:05:31 05/23/20 23 05/23/2023 MICRO ALBUM N RNDM W/CRE AT RATIO microalbumin /creatinine ratio 6 mcg/m g 0-29 THE AMERI CAN DIABE JESSICA ASSOC IATIO N DEFIN ES ABNOR MALIT IES IN ALBUM IN EXCRE TION FOLLO WS: CATEG ORY RESUL T (MCG/ MG CREAT ININE ) KRISTINE L <30 MICRO ALBUM INURI A 30-29 9 CLINI MATHEW ALBUM INURI A > OR = 300 THE ADA RECOM MENDS THAT 2 OF 2 SPECI MENS COLLE CTED WITHI N A 3- TO 6-MON TH PERIO D BE ABNOR MAL BEFOR E CONSI DANGELO G A PATIE NT TO HAVE CROSS ED ONE OF THESE DIAGN OSTIC THRES HOLDS . REFER ENCE: DIABE JESSICA CARE, VOL. 26: S94-S 96, 2002 Not Available [facility] (Lab) [address] [place], [address], 05/23/2023 20:05:31 05/13/20 24 05/13/2024 COLOG UARD cologuard result reportable NEGATI VE negati ve normal NEGAT RAMIREZ TEST RESUL T. A negat ramirez Colog uard resul t indic ates a low likel ihood that a color ectal cance r (CRC) or advan jeremiah adeno ma (sasha omato us polyp s with more advan jeremiah pre-m align ant featu res) is prese nt. The [facility] e that a perso n with a negat ramirez Colog uard test has a color ectal cance r is less than 1 in 1500 (nega tive predi ctive value >99.9 %) or has an advan jeremiah adeno ma is less than 5.3% (nega tive predi ctive value 94.7% ). These data are based on a prosp ectiv e cross -sect ional study of 0 indiv idual s at [place] ge risk for color ectal cance r who were scree ledy with both Colog uard and colon oscop y. (Hyacinth Slater et al, N Engl J Med 2014; 370(1 4):12 86-12 97) The kristine l value (refe rence range ) for this assay is negat armirez. COLOG UARD RE-SC REENI NG RECOM MENDA TION: Perio dic color ectal cance r scree carlo is an impor tant part of preve ntive healt hcare for asymp tomat ic indiv idual s at [place] [facility] risk for color ectal cance r. Follo wing a negat ramirez Colog uard resul t, the Ameri can Cance r Socie ty and U.S. Multi -Soci ety Task Force scree carlo guide lines recom mend a Colog uard re-sc reeni ng inter cedric of 3 years . Refer ences : Ameri can Cance r Socie ty Guide line for Color ectal Cance r Scree carlo: https ://keena w.can cer.o rg/ca ncer/ colon -rect al-ca ncer/ detec tion- diagn osis- stagi ng/ac s-rec ommen datio ns.ht ml.; Roland RENNER, Kartik HANNA, Domin sasha JK, Color ectal Cance r Scree carlo: Recom menda tions for Physi cians and Patie nts from the U.S. Multi -Soci ety Task Force on Color ectal Cance r Scree Olga matos y 2017; 112:1 016-1 030. TEST DESCR IPTIO N: [place] site algor ithmi c wanda sis of stool DNA-b iomar kers with hemog lobin immun oassa y. Quant itati ve value s of indiv idual bioma rkers are not repor table and are not assoc iated with indiv idual bioma rker resul t refer ence range s. Colog uard is inten ded for color ectal cance r scree carlo of adult s of eithe r sex, 45 years or older , who are at [facility] for color ectal cance r (CRC) . Colog uard has been appro sheree for use by the U.[place]. FDA. The perfo rmanc e of Colog uard was estab lishe d in a cross secti onal study of [facility] adult s aged 50-84 . Colog uard perfo rmanc e in patie nts ages 45 to 49 years was estim ated by rosio-maria eugenia chatman wanda sis of near- age group s. Colon oscop ies perfo rmed for a posit ramirez resul t may find as the most clini miguel signi ficholger t lesio n: color ectal cance r [4.0% ], advan jeremiah adeno ma (incl uding sessi le reece sharlene polyp s great er than or equal to 1cm diame ter) [20%] or non- advan jeremiah adeno ma [31%] ; or no color ectal neopl siomara [45%] . These estim ates are deriv ed from a prosp ectiv e cross -sect ional scree carlo study of 10,00 0 indiv idual s at [facility] risk for color ectal cance r who were scree ledy with both Colog uard and colon oscop y. (Hyacinth Slater et al, N Engl J Med 2014; 370(1 4):12 86-12 97.) Colog uard may produ ce a false negat ramirez or false posit ramirez resul t (no color ectal cance r or preca ncero us polyp prese nt at colon oscop y follo w up). A negat ramirez Colog uard test resul t does not guara ntee the absen ce of CRC or advan jeremiah adeno ma (pre- cance r). The curre nt Colog uard scree carlo inter cedric is every 3 years . (Amer ican Cance r Socie ty and U.S. Multi -Soci ety Task Force ). Colog uard perfo rmanc e data in a 10,00 0 patie nt pivot al study using colon oscop y as the refer ence metho d can be acces sed at the follo wing locat ion: www.e xactl abs.c om/re sults . Addit ional descr iptio n of the Colog uard test proce ss, warni ngs and preca ution s can be found at www.c ologu mica.c om. Not Available [facility] (Cologuard Orders Only) [address], [place], [address], 05/25/2024 09:44:09 07/21/19 25 07/22/2024 LIPID PANEL , STAND MICA cholesterol, total 134 mg/dL <200 normal Not Available [facility] [address] [address] [place], [address], 07/22/2024 05:30:38 07/21/19 25 07/22/2024 LIPID PANEL , STAND MICA HDL cholesterol 46 mg/dL > or = 50 low Not Available [facility] [address] [place], [address], 07/22/2024 05:30:38 07/21/19 25 07/22/2024 LIPID PANEL , STAND MICA triglyceride s 130 mg/dL <150 normal Not Available [facility] [address] [place], [address], 07/22/2024 05:30:38 07/21/19 25 07/22/2024 LIPID PANEL , STAND MICA LDL-choleste rol 67 mg/dL _(mathew c) normal Refer ence range : <100 Bill able range <100 mg/dL for prima ry preve ntion ; <70 mg/dL for patie nts with CHD or diabe tic patie nts with > or = 2 CHD risk facto rs. LDL-C is now calcu lated using the Aisha n-Hop kins calcu benji n, which is a valid ated novel metho d provi ding christie r accur acy than the Fried chris equat ion in the estim ation of LDL-C . Aisha n SS et al. ELIEZER. 2013; 310(1 9): 2061- 2068 (http ://ed ucati on.Tune. [employer]/f aq/FA Q164) Not Available [facility] [address] [place], [address], 07/22/2024 05:30:38 07/21/19 25 07/22/2024 LIPID PANEL , STAND MICA chol/HDLC ratio 2.9 (calc ) <5.0 normal Not Available [facility] [address] [place], [address], 07/22/2024 05:30:38 07/21/1907/22/2024 LIPID PANEL , STAND MICA non HDL cholesterol 88 mg/dL _(mathew c) <130 normal For patie nts with diabe jessica plus 1 major ASCVD risk facto r, treat ing to a non-H DL-C goal of <100 mg/dL (LDL- C of <70 mg/dL ) is consi dered a thera peuti c optio n. Not Available [facility] [address] [place], [address], 07/22/2024 05:30:38 07/21/1907/22/2024 COMPR EHENS RAMIREZ METAB OLIC PANEL , PLASM A glucose 171 mg/dL 65-99 high Fasti ng refer ence inter cedric For someo ne witho ut known diabe jessica, a gluco se value >125 mg/dL indic ates that they may have diabe jessica and this shoul d be confi rmed with a follo w-up test. Not Available [address], [address], 07/22/2024 05:30:39 07/21/19 25 07/22/2024 COMPR EHENS RAMIREZ METAB OLIC PANEL , PLASM A urea nitrogen (BUN) 12 mg/dL 7-25 normal Not Available [address], [address], 07/22/2024 05:30:39 07/21/1907/22/2024 COMPR EHENS RAMIREZ METAB OLIC PANEL , PLASM A creatinine 0.80 mg/dL 0.50-1 .03 normal Not Available [facility] [address], [address], 07/22/2024 05:30:39 07/21/19 25 07/22/2024 COMPR EHENS RAMIREZ METAB OLIC PANEL , PLASM A eGFR 90 mL/mi n/1.7 3m2 > or = 60 normal Not Available [address], [address], 07/22/2024 05:30:39 07/21/1907/22/2024 COMPR EHENS RAMIREZ METAB OLIC PANEL , PLASM A BUN/creatini ne ratio SEE NOTE: (calc ) 6-22 Not Repor sharlene: BUN and Creat inine are withi n refer ence range . Not Available [facility] [address], [address], 07/22/2024 05:30:39 07/21/1907/22/2024 COMPR EHENS RAMIREZ METAB OLIC PANEL , PLASM A sodium 139 mmol/ L 135-14 6 normal Not Available [facility] [address], [address], 07/22/2024 05:30:39 07/21/19 25 07/22/2024 COMPR EHENS RAMIREZ METAB OLIC PANEL , PLASM A potassium 3.6 mmol/ L 3.4-4. 8 normal Not Available [address], [address], 07/22/2024 05:30:39 07/21/19 25 07/22/2024 COMPR EHENS RAMIREZ METAB OLIC PANEL , PLASM A chloride 101 mmol/ L 98-110 normal Not Available [address], [address], 07/22/2024 05:30:39 07/21/19 25 07/22/2024 COMPR EHENS RAMIREZ METAB OLIC PANEL , PLASM A carbon dioxide 29 mmol/ L 20-32 normal Not Available [address], [address], 07/22/2024 05:30:39 07/21/19 25 07/22/2024 COMPR EHENS RAMIREZ METAB OLIC PANEL , PLASM A calcium 9.4 mg/dL 8.6-10 .4 normal Not Available [address], [address], 07/22/2024 05:30:39 07/21/19 25 07/22/2024 COMPR EHENS RAMIREZ METAB OLIC PANEL , PLASM A protein, total 7.8 g/dL 6.4-8. 4 normal Not Available [address], [address], 07/22/2024 05:30:39 07/21/19 25 07/22/2024 COMPR EHENS RAMIREZ METAB OLIC PANEL , PLASM A albumin 4.5 g/dL 3.6-5. 1 normal Not Available [address], [address], 07/22/2024 05:30:39 07/21/19 25 07/22/2024 COMPR EHENS RAMIREZ METAB OLIC PANEL , PLASM A globulin 3.3 g/dL_ (calc ) 2.2-4. 0 normal Not Available [address], [address], 07/22/2024 05:30:39 07/21/19 25 07/22/2024 COMPR EHENS RAMIREZ METAB OLIC PANEL , PLASM A albumin/glob ulin ratio 1.4 (calc ) 0.9-2. 3 normal Not Available [address], [address], 07/22/2024 05:30:39 07/21/19 25 07/22/2024 COMPR EHENS RAMIREZ METAB OLIC PANEL , PLASM A bilirubin, total 0.6 mg/dL 0.2-1. 2 normal Not Available [address], [address], 07/22/2024 05:30:39 07/21/19 25 07/22/2024 COMPR EHENS RAMIREZ METAB OLIC PANEL , PLASM A alkaline phosphatase 80 U/L 37-153 normal Not Available [address], [address], 07/22/2024 05:30:39 07/21/19 25 07/22/2024 COMPR EHENS RAMIREZ METAB OLIC PANEL , PLASM A AST 19 U/L 10-35 normal Not Available [address], [address], 07/22/2024 05:30:39 07/21/19 25 07/22/2024 COMPR EHENS RAMIREZ METAB OLIC PANEL , PLASM A ALT 19 U/L 6-29 normal Not Available [address], [address], 07/22/2024 05:30:39 07/21/19 25 07/22/2024 ALBUM IN, RANDO M URINE W/O CREAT ININE albumin, urine 1.1 mg/dL see note: normal Refer ence Range : Refer ence Range Not estab lishe d Not Available [facility] [address] [place], [address], 07/22/2024 05:30:40 07/21/1907/22/2024 ALBUM IN, RANDO M URINE W/O CREAT ININE DILLON The ADA defin es abnor malit ies in album in excre tion as follo ws: Album inuri a Categ ory Resul t (mg/g creat inine ) Kristine l to Mildl y incre ased <30 Moder ately incre ased 30-29 9 Sever perla incre ased > OR = 300 The ADA recom mends that at least two of three speci mens colle cted withi n a 3-6 month perio d be abnor mal befor e consi dangelo g a patie nt to be withi n a diagn ostic categ ory. Not Available [facility] [address] [place], [address], 07/22/2024 05:30:40 07/21/1907/22/2024 CBC (INCL UDES DIFF/ PLT) white blood cell count 8.0 thous and/u L 3.8-10 .8 normal Not Available [address], [address], 07/22/2024 05:30:41 07/21/1907/22/2024 CBC (INCL UDES DIFF/ PLT) red blood cell count 4.69 chip on/uL 3.80-5 .10 normal Not Available [facility] [address] [place], [address], 07/22/2024 05:30:41 07/21/1907/22/2024 CBC (INCL UDES DIFF/ PLT) hemoglobin 14.2 g/dL 11.7-1 5.5 normal Not Available [facility] [address] [place], [address], 07/22/2024 05:30:41 07/21/19 25 07/22/2024 CBC (INCL UDES DIFF/ PLT) hematocrit 41.3 % 35.0-4 5.0 normal Not Available [address], [address], 07/22/2024 05:30:41 07/21/19 25 07/22/2024 CBC (INCL UDES DIFF/ PLT) MCV 88.1 fL 80.0-1 00.0 normal Not Available [address], [address], 07/22/2024 05:30:41 07/21/19 25 07/22/2024 CBC (INCL UDES DIFF/ PLT) MCH 30.3 pg 27.0-3 3.0 normal Not Available [address], [address], 07/22/2024 05:30:41 07/21/19 25 07/22/2024 CBC (INCL UDES DIFF/ PLT) MCHC 34.4 g/dL 32.0-3 6.0 normal For adult s, a sligh t decre ase in the calcu lated MCHC value (in the range of 30 to 32 g/dL) is most likel y not clini miguel signi ficholger t; david er, it shoul d be inter prete d with cauti on in corre lat n with other red cell chastity eters and the patie nt's clini mathew condi tion. Not Available [address], [address], 07/22/2024 05:30:41 07/21/19 25 07/22/2024 CBC (INCL UDES DIFF/ PLT) RDW 11.8 % 11.0-1 5.0 normal Not Available [address], [address], 07/22/2024 05:30:41 07/21/19 25 07/22/2024 CBC (INCL UDES DIFF/ PLT) platelet count 243 thous and/u L 140-40 0 normal Not Available [facility] [address], [address], 07/22/2024 05:30:41 07/21/19 25 07/22/2024 CBC (INCL UDES DIFF/ PLT) MPV 10.9 fL 7.5-12 .5 normal Not Available [address], [address], 07/22/2024 05:30:41 07/21/19 25 07/22/2024 CBC (INCL UDES DIFF/ PLT) absolute neutrophils 5824 cells /uL 1500-7 800 normal Not Available [address], [address], 07/22/2024 05:30:41 07/21/19 25 07/22/2024 CBC (INCL UDES DIFF/ PLT) absolute lymphocytes 1696 cells /uL 850-39 00 normal Not Available [address], [address], 07/22/2024 05:30:41 07/21/19 25 07/22/2024 CBC (INCL UDES DIFF/ PLT) absolute monocytes 368 cells /uL 200-95 0 normal Not Available [address], [address], 07/22/2024 05:30:41 07/21/19 25 07/22/2024 CBC (INCL UDES DIFF/ PLT) absolute eosinophils 72 cells /uL 15-500 normal Not Available [facility] [address], [address], 07/22/2024 05:30:41 07/21/19 25 07/22/2024 CBC (INCL UDES DIFF/ PLT) absolute basophils 40 cells /uL 0-200 normal Not Available [facility] [address], [address], 07/22/2024 05:30:41 07/21/19 25 07/22/2024 CBC (INCL UDES DIFF/ PLT) neutrophils 72.8 % normal Not Available [address], [address], 07/22/2024 05:30:41 07/21/19 25 07/22/2024 CBC (INCL UDES DIFF/ PLT) lymphocytes 21.2 % normal Not Available [address], [address], 07/22/2024 05:30:41 07/21/19 25 07/22/2024 CBC (INCL UDES DIFF/ PLT) monocytes 4.6 % normal Not Available [address], [address], 07/22/2024 05:30:41 07/21/19 25 07/22/2024 CBC (INCL UDES DIFF/ PLT) eosinophils 0.9 % normal Not Available [address], [address], 07/22/2024 05:30:41 07/21/19 25 07/22/2024 CBC (INCL UDES DIFF/ PLT) basophils 0.5 % normal Not Available [address], [address], 07/22/2024 05:30:41 07/21/19 25 07/22/2024 T4, FREE T4, free 1.2 NG/dL 0.8-1. 8 normal Not Available [address], [address], 07/22/2024 05:30:42 07/21/19 25 07/22/2024 TSH TSH 1.03 mIU/L normal Refer ence Range > or = 20 Years 0.40- 4.50 Pregn gina Range s First trime ster 0.26- 2.66 Secon d trime ster 0.55- 2.73 Third trime ster 0.43- 2.91 Not Available [address], [place], [address], 07/22/2024 05:30:43 07/21/19 25 07/22/2024 VITAM IN D,25- OH,TO FRANCESCA,I A vitamin D,25-oh,tota l,ia 30 NG/mL 30-100 normal Vitam in D Statu s 25-OH Vitam in D: Defic iency : <20 ng/mL Insuf ficie ncy: 20 - 29 ng/mL Optim al: > or = 30 ng/mL For 25-OH Vitam in D testi ng on patie nts on D2-tay pplem entat ion and patie nts for whom quant itati on of D2 and D3 fract ions is requi red, the [facility] eD(TM ) 25-OH VIT D, (D2,D 3), LC/MS /MS is recom lisa d: order code 82331 (fang ents >2yrs ). See Note 1 Note 1 For addit ional infor brady knight e refer to http: //[facility] harpal Daniel stDia gnost ics.c om/fa q/FAQ 199 (This link is being provi ded for infor lugii stewart/ josh whitlock purpo ses only. ) Not Available [facility] [address] [place], [address], 07/22/2024 05:30:44 07/21/19 25 07/22/2024 HEMOG LOBIN A1C hemoglobin A1C 6.1 %_of_ total _HGB <5.7 high For someo ne witho ut known diabe jessica, a hemog lobin A1c value betwe en 5.7% and 6.4% is consi stent with predi abete s and shoul d be confi rmed with a follo w-up test. For someo ne with known diabe jessica, a value <7% indic ates that their diabe jessica is well contr olled . A1c targe ts shoul d be indiv idual ized based on durat ion of diabe jessica, age, comor bid condi tions , and other consi derat ions. This assay resul t is consi stent with an incre ased risk of diabe jessica. Curre ntly, no conse nsus exist s chandler krishnamurthy use of hemog lobin A1c for diagn osis of diabe jessica for child broderick. Not Available [facility] [address] [place], [address], 07/22/2024 05:30:45 11/04/1911/04/2024 LIPOP ROTEI N (A) lipoprotein (A) 43 nmol/ L Refer ence Range <75 Risk: Optim al <75 Moder ate 75-12 5 High >125 Cardi ovasc ular event risk categ ory cut point s (opti mal, moder ate, high) are based on Ferdinand Mcbride. [facility] 2017; 69:69 2-711 . Not Available [facility] [address] [address] [place], [address], 11/04/2024 15:34:44 11/04/19 25 11/04/2024 VITAM IN B12/F OLATE , SERUM PANEL vitamin B12 236 pg/mL 200-11 00 normal Pleas e Note: Altho ugh the refer ence range for vitam in B12 is 200-1 100 pg/mL , it has been repor sharlene that betwe en 5 and 10% of patie nts with value s betwe en 200 and 400 pg/mL may exper ience neuro psych iatri c and hemat ologi c abnor malit ies due to occul t B12 defic iency ; less than 1% of patie nts with value s above 400 pg/mL will have sympt oms. Not Available [facility] [address] [place], [address], 11/04/2024 15:34:45 11/04/1911/04/2024 VITAM IN B12/F OLATE , SERUM PANEL folate, serum 6.7 NG/mL normal Refer ence Range Low: <3.4 Borde rline : 3.4-5 .4 Kristine l: >5.4 Not Available [facility] [address] [address] [place], [address], 11/04/2024 15:34:45 02/28/20 24 02/12/2024 thai JOSEPH bilat eral No observ ation record ed. Not Available 2023 17:30:17 Result Notes None recorded. Problems Name Problem SNOMED Code Status Onset Date Resolution Date Notes Provider Name and Address Organization Details Recorded Time Irritable bowel syndrome 13966413 Active Not Available [facility] 3 14:19:50 Benign essential hypertens ion 7853668 Completed Not Available [facility] 3 14:19:50 Lateral epicondyl itis 026631745 Active 2018 Not Available [facility] 3 14:19:50 Gastroeso phageal reflux disease 716453640 Active 2022 Not Available [facility] 3 14:19:50 Tear of meniscus of knee 322635082 Active 2016 Not Available [facility] 3 14:19:50 Pure hyperchol esterolem ia 970151908 Active Not Available [facility] 3 14:19:50 Juvenile osteochon drosis of lower extremity , excluding foot 085451612 Active Not Available [facility] 3 14:19:50 Carpal tunnel syndrome 97496839 Active 2018 Not Available [facility] 3 14:19:50 Essential hypertens ion 40617630 Active 2019 Not Available [facility] 3 14:19:50 Palpitati ons 55479576 Active Not Available [facility] 3 14:19:50 Obesity 432048412 Active 2022 Jacqueline Sanchez CMA null, [employer] [facility] [employer] [facility] 3 15:48:56 Obstructi ve sleep apnea syndrome 21459876 Active 2022 Matthew Tabares MD [address] [facility], [facility] [address], [place], [address] , [facility] [employer] [facility] 3 10:46:40 Pain of right shoulder joint 93033095137 553831 Active 2022 Ginger Adler, ATC L null, [place] [facility] 3 09:47:59 Tear of medial meniscus of knee 307700262 Active 2022 Zev Sherman MD [address], [place], [address] , [place] [facility] [employer] [facility] 3 10:17:01 Fatigue 56467734 Active 2022 Aidan Harris MD [address], [place], [address] , [facility] - [facility] [employer] [facility] 5 11:23:03 Loss of hair 375563455 Active 2022 Orly Tamayo MD [address], [place], [address] , [facility] - [facility] [employer] [facility] 3 09:29:54 Bile-rupert jeremiah gastritis 99928681 Active 2022 Nisha Sharp MD [address], [place], [address] , [facility] - [facility] [employer] [facility] 3 12:15:55 Paresthes ia of lower extremity 380734331 Active 2022 Aidan Harris MD [address], [place], [address] , [facility] - [facility] [employer] [facility] 3 11:17:20 Pain of left shoulder joint 46843617871 114989 Active 2022 WILI Harmon, [place] [facility] [employer] [facility] 3 14:19:27 Left trigemina l neuralgia 35660394657 948337 Active 2023 Aidan Harris MD [address], [place], [address] , [facility] - [facility] [employer] [facility] 4 10:18:22 Acute sinusitis 06929328 Active 2023 Aidan Harris MD [address], [place], [address] , [facility] - [facility] [employer] [facility] 4 10:14:09 Type 2 diabetes mellitus 95069147 Active 2023 Aidan Harris MD [address], [address] [address], [place], [address] , [facility] [employer] [facility] [employer] [facility] 4 10:43:34 Vitamin D deficienc y 98962196 Active 2023 Aidan Harris MD [address], [address] [address], [place], [address] , [facility] [employer] [facility] 4 10:49:38 Carotid bruit 975493474 Active 2024 Rachel Franco ana, [employer] 5 11:28:23 Notes:Medical History: Anxie ty COVID infection 01/2020 Early REM onset Obesity with mild OSAHS, AHI = 14, 07/19/22, on autoCPAP c/o IVRC Hypertension Hyperlipidemia T2DM with microalbuminuria SAI Transaminitis Constipation-predominant IBS Vit D deficiency Left meniscus tear Procedure History: D&C 1996, 1997 Cholecystectomy 1998 Bilateral breast implants 2002 Left CTS release surgery 2004 Right CTS release surgery 2009 Left lateral epicondylitis surgery 2019 Abdominoplasty 2021 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 Procedures Surgical History Date Name Laterality Status Provider Name and Address Organization Details Recorded Time 3 Ortho - Cortisone Injection completed Zev Sherman MD [address], [address] [address], [place], [address], [facility] [employer] 09/07/2022 10:15:06 3 Endoscopy completed Sophia Otto LPN [place] [employer] [facility] [employer] 09/12/2022 12:03:20 1 procedure on elbow completed JOSE Hopson [employer] [facility] [employer] 09/07/2022 09:46:18 Carpal tunnel surgery completed JOSE Hopson [employer] [facility] [employer] [facility] 09/07/2022 09:46:43 Imaging Results None recorded. Procedure Notes None recorded. Medical Equipment None Reported. Allergies Allergen ID Allergen Name Allergen Category Reaction Reaction Severity Criticality Documentation Date Start Date Code Code System Note Provider Name and Address Organization Details Recorded Time 71021 Z[employer] medicatio n other Not available Not available 08/02/2022 23337 3 RxNorm insom marichuy Not Available [facility] 3 14:23:11 31503 hydrocodo ne Not available itching Not available Not available 08/02/2022 5489 RxNorm Not Available [facility] 3 14:23:11 Medications Name Sig Start Date Stop Date Status Note LastModified by Organization Details LastModified Time carisoprodo l 350 mg tablet TAKE 1 TABLET BY MOUTH THREE TIMES DAILY NEEDED FOR MUSCLE PAIN 09/01 completed Not Available Not Available Not Available amoxicillin 500 mg capsule Take 1 capsule 3 times a day by oral route for 10 days. 08/05 completed Not Available Not Available Not Available metformin 500 mg tablet TAKE 1 TABLET BY MOUTH TWICE DAILY 08/10 completed Not Available Not Available Not Available benzonatate 200 mg capsule Take 1 capsule 3 times a day by oral route. 05/01 completed Not Available Not Available Not Available hydrocodone 5 mg-acetamin ophen 325 mg tablet TK 1 T PO Q 4 H PRN 09/01 completed Not Available Not Available Not Available sucralfate 1 gram tablet DISSOLVE 1 TABLET IN 10 ML OF WATER AND TAKE BY MOUTH TWICE DAILY FOR ACID REFLUX 10/20 completed Not Available Not Available Not Available lisinopril 20 mg tablet TAKE 1 TABLET BY MOUTH TWICE DAILY 2024 active Not Available Not Available Not Avai lable ondansetron HCl 4 mg tablet 09/01 completed Not Available Not Available Not Available Zithromax Z-Jeffery 250 mg tablet TAKE 2 TABLETS (500 MG) BY ORAL ROUTE ONCE DAILY FOR 1 DAY THEN 1 TABLET (250 MG) BY ORAL ROUTE ONCE DAILY FOR 4 DAYS 04/30 completed Not Available Not Available Not Available Ativan 2 mg tablet Take 1 tablet 3 times a day by oral route. 2015 active Not Available Not Available Not Avai lable promethazin e 6.25 mg-codeine 10 mg/5 mL syrup Take 5 mL every 6 hours by oral route. 08/05 completed Not Available Not Available Not Available Ultram 50 mg tablet Take 1 tablet every 6 hours by oral route. 01/29 completed Not Available Not Available Not Available penicillin V potassium 500 mg tablet TAKE 1 TABLET BY MOUTH FOUR TIMES DAILY UNTIL ALL TAKEN 08/11 completed Not Available Not Available Not Available aspirin 81 mg tablet,krystle yed release Take 1 tablet every day by oral route. 2013 active Not Available Not Available Not Avai lable amoxicillin 500 mg tablet TAKE 2 TABLETS BY MOUTH EVERY 12 HOURS UNTIL GONE 08/07 completed Not Available Not Available Not Available glimepiride 2 mg tablet TAKE 1 TABLET BY MOUTH EVERY DAY 11/01 completed Not Available Not Available Not Available glimepiride 1 mg tablet TAKE 1 TABLET BY MOUTH EVERY DAY active Not Available Not Available No t Available prednisone 10 mg tablets in a dose pack Take 1 tab by mouth, 3 times a day for 3 daysTake 1 tab by mouth 2 times a day for 2 daysTake 1 tab by mouth once a day for 1 day 09/12 completed Not Available Not Available Not Available oxycodone-a cetaminophe n 5 mg-325 mg tablet 09/01 completed Not Available Not Available Not Available alprazolam 0.5 mg tablet TAKE 1 TABLET BY MOUTH THREE TIMES DAILY NEEDED 09/01 completed Not Available Not Available Not Available [email or web address] Ultra Test strips USE EVERY DAY 10/20 completed Not Available Not Available Not Available Kenalog 10 mg/mL suspension for injection Take 10 mg by injection route. 09/[address] [facility]: 0003- [id number]- 20 Not Available Not Available Not Available pantoprazol e 40 mg tablet,krystle yed release TAKE 1 TABLET BY MOUTH EVERY DAY 2024 active Not Available Not Available Not Avai lable metformin 1,000 mg tablet TAKE 1 TABLET BY MOUTH TWICE DAILY 10/30 completed endo took off Not Available Not Available Not Available clotrimazol e-betametha sone 1 %-0.05 % topical cream APPLY TO THE AFFECTED AND SURROUNDI NG AREAS OF SKIN BY TOPICAL ROUTE 2 TIMES PER DAY IN THE MORNING AND EVENING FOR 2 WEEKS 08/05 completed Not Available Not Available Not Available indomethaci n 50 mg capsule Take 1 capsule 3 times a day by oral route with meals. 08/05 completed Not Available Not Available Not Available docusate sodium 100 mg capsule TAKE ONE CAPSULE BY MOUTH DAILY 05/01 completed Not Available Not Available Not Available furosemide 20 mg tablet TAKE 1 TABLET BY MOUTH EVERY DAY 2023 active Not Available Not Available Not Avai lable ergocalcife rol (vitamin D2) 1,250 mcg (50,000 unit) capsule TAKE 1 CAPSULE BY MOUTH TWICE WEEKLY WITH A MEAL 05/09 completed Not Available Not Available Not Available Ativan 0.5 mg tablet ONE THREE TIMES A DAY NEEDED active Not Available Not Available No t Available methylpredn isolone 4 mg tablets in a dose pack Take by oral route as per package insert 04/30 completed Not Available Not Available Not Available amoxicillin 875 mg-potassiu m clavulanate 125 mg tablet Take 1 tablet every 12 hours by oral route. 10/24 completed Not Available Not Available Not Available escitalopra m 10 mg tablet Take 1 tablet every day by oral route. active Not Available Not Available No t Available rosuvastati n 10 mg tablet TAKE 1 TABLET BY MOUTH EVERY DAY 2022 active Not Available Not Available Not Avai lable Crestor 20 mg tablet Take 1 tablet every day by oral route. 05/01 completed Not Available Not Available Not Available escitalopra m 5 mg tablet TAKE 1 TABLET BY MOUTH EVERY DAY 02/09 completed Not Available Not Available Not Available magnesium 08/01 completed Not Available Not Available Not Available flaxseed oil 10/20 completed Not Available Not Available Not Available potassium 01/30 completed Not Available Not Available Not Available lidocaine (PF) 10 mg/mL (1 %) injection solution In office injection administe red by the provider 02/[address] [facility]: [phone] Not Available Not Available Not Available Januvia 100 mg tablet TAKE 1 TABLET BY MOUTH EVERY DAY 05/09 completed Not Available Not Available Not Available hydrochloro thiazide 12.5 mg tablet TAKE 1 TABLET BY MOUTH DAILY 2024 active Not Available Not Available Not Avai lable Havrix (PF) 1,440 TYLER unit/mL intramuscul ar suspension Inject 1 mL by intramusc ular route. 01/30 completed Not Available Not Available Not Available Livalo 2 mg tablet Take 1 tablet every day by oral route. 08/05 completed Not Available Not Available Not Available ropivacaine (PF) 5 mg/mL (0.5 %) injection solution Take 20 mg by injection route. 10/[address] [facility] [phone] Not Available Not Available Not Available Belviq 10 mg tablet Take 1 tablet twice a day by oral route. active Not Available Not Available No t Available Farxiga 10 mg tablet Take 1 tablet every day by oral route. active Not Available Not Available No t Available Farxiga 5 mg tablet TAKE 1 TABLET BY MOUTH EVERY DAY active Not Available Not Available No t Available Trulicity 1.5 mg/0.5 mL subcutaneou s pen injector ADMINISTE R 1.5 MG UNDER THE SKIN 1 TIME WEEKLY 09/01 completed Not Available Not Available Not Available Ozempic 0.25 mg or 0.5 mg (2 mg/1.5 mL) subcutaneou s pen injector 05/03 completed Not Available Not Available Not Available OneTouch Ultra Blue Test Strip USE TO TEST BLOOD SUGAR ONCE DAILY active Not Available Not Available No t Available Ozempic 1 mg/dose (4 mg/3 mL) subcutaneou s pen injector Inject 1 mg every week by subcutane ous route at dinner for 90 days. 10/30 completed Not Available Not Available Not Available Ozempic 2 mg/dose (8 mg/3 mL) subcutaneou s pen injector Inject by subcutane ous route. active Not Available Not Available No t Available Vitals Date Recorded Body height Body mass index (BMI) Body weight Heart rate Body temperature Oxygen saturation Oxygen saturation in Arterial blood by Pulse oximetry Systolic blood pressure Diastolic blood pressure Provider Name and Address Organization Details Last Updated DateTime 5 162.56 cm 28.5 kg/m2 83888.3 3 g 91 /min 97 [degF] 97 % 97 % 120 mm[Hg] 78 mm[Hg] Shahla Pruitt [place] - [facility] 5 10:58:57 Date Recorded Body height Body mass index (BMI) Body weight Heart rate Body temperature Oxygen saturation Oxygen saturation in Arterial blood by Pulse oximetry Systolic blood pressure Diastolic blood pressure Provider Name and Address Organization Details Last Updated DateTime 4 162.56 cm 26.9 kg/m2 28373 g 79 /min 97.2 [degF] 98 % 98 % 120 mm[Hg] 86 mm[Hg] Yenny Alonzo Abhijit [facility] [employer] [facility] 4 10:55:23 Date Recorded Body height Body mass index (BMI) Body weight Heart rate Body temperature Oxygen saturation Oxygen saturation in Arterial blood by Pulse oximetry Systolic blood pressure Diastolic blood pressure Provider Name and Address Organization Details Last Updated DateTime 4 162.56 cm 27.3 kg/m2 49637.1 9 g 94 /min 97.6 [degF] 97 % 97 % 120 mm[Hg] 82 mm[Hg] Yenny Alonzo Abhijit [facility] Leatt [facility] 4 10:10:28 Date Recorded Body height Body mass index (BMI) Body weight Heart rate Body temperature Oxygen saturation Oxygen saturation in Arterial blood by Pulse oximetry Systolic blood pressure Diastolic blood pressure Provider Name and Address Organization Details Last Updated DateTime 4 162.56 cm 27.6 kg/m2 76812.3 7 g 96 /min 97 [degF] 97 % 97 % 104 mm[Hg] 70 mm[Hg] Yenny Alonzo Abhijit [facility] Leatt [facility] 4 10:36:02 Date Recorded Body height Body mass index (BMI) Body weight Heart rate Body temperature Oxygen saturation Oxygen saturation in Arterial blood by Pulse oximetry Systolic blood pressure Diastolic blood pressure Provider Name and Address Organization Details Last Updated DateTime 3 162.56 cm 28.2 kg/m2 31009.9 4 g 89 /min 97 [degF] 98 % 98 % 120 mm[Hg] 60 mm[Hg] Shahla Pruitt [facility] [employer] [facility] 3 11:21:32 Social History Question Answer Notes LastModified by Organizat ion Details LastModified Time Tobacco Smoking Status Never Smoker Not Available [employer] 08/02/2022 14:16:51 What Is Your Level Of Caffeine Consumption? Occasional [id number] Information not available 08/02/2022 In The 14 Days Before Symptom Onset, Have You Had Close Contact With A Laboratory-confir med COVID-19 While That Case Was Ill? No MIGRATION.[id number] Information not available 08/02/2022 In The 14 Days Before Symptom Onset, Have You Had Close Contact With A Person Who Is Under Investigation For COVID-19 While That Person Was Ill? No MIGRATION.[id number] Information not available 08/02/2022 What Type Of Diet Are You Following? REGULAR MIGRATION.[id number] Information not available 08/02/2022 Do You Have An Electrostatic Air Filter? Yes MIGRATION.[id number] Information not available 08/02/2022 Are There Any Guns Present In Your Home? Yes MIGRATION.[id number] Information not available 08/02/2022 Do You Have A Humidifier? No MIGRATION.[id number] Information not available 08/02/2022 [facility] M[facility].[id number] Information not available 08/02/2022 Do You Have Moisture Problems In Your Home? No MIGRATION.[id number] 5823 Information not available 08/02/2022 What Was The Date Of Your Most Recent Tobacco Screening? 11/01/2022 Information not available 11/01/2022 Do You Have Any Pets? Yes MIGRATION.[id number] 0722 Information not available 08/02/2022 Do You Use Your Seat Belt Or Car Seat Routinely? Yes Information not available 08/07/2022 Do You Have Smoke And Carbon Monoxide Detectors In Your Home? Yes MIGRATION.144565 3317 Information not available 08/02/2022 Are You Passively Exposed To Smoke? No MIGRATION.935188 0545 Information not available 08/02/2022 Do You Use Sunscreen Routinely? Yes MIGRATION.232849 0147 Information not available 08/02/2022 Have You Recently Traveled Abroad? No MIGRATION.824432 5221 Information not available 08/02/2022 Do You Have Any Dietary Restrictions? No MIGRATION.489523 6470 Information not available 08/02/2022 Sex: Unknown Functional Status Question Answer Note LastModified by Organizat ion Details LastModified Time Do you use any illicit or recreational drugs? No MIGRATION.[id number] 026 Information not available 08/02/2022 What is your level of alcohol consumption? Occasional MIGRATION.[id number] 026 Information not available 08/02/2022 Have you been exposed to chemicals or toxins? No Information not available 08/07/2022 What is your occupation? [employer] MIGRATION.[id number] 026 Information not available 08/02/2022 What is your exercise level? Occasional MIGRATION.[id number] 026 Information not available 08/02/2022 Mental Status None recorded. Family History Relationship Description Onset Age of this Age Resolved Age Notes LastModified by Organization Details LastModified Time Brother Obstructive sleep apnea syndrome [id number] Not available 08/02/2022 14:17:05 Brother Heart disease MIGRATION.782 [id number] Not available 08/02/2022 14:17:05 Sister Obstructive sleep apnea syndrome MIGRATION.750 [id number] Not available 08/02/2022 14:17:05 Sister Diabetes mellitus MIGRATION.335 [id number] Not available 08/02/2022 14:17:05 Mother Hypertensive disorder MIGRATION.895 [id number] Not available 08/02/2022 14:17:05 Mother Diabetes mellitus MIGRATION.377 [id number] Not available 08/02/2022 14:17:05 Mother Heart disease MIGRATION.732 [id number] Not available 08/02/2022 14:17:05 Father Heart disease MIGRATION.918 [id number] Not available 08/02/2022 14:17:05 Notes:Mother 75 essential hy pertension, Type II Diabetes and arteriosclerotic heart disease Father 42 arteriosclerotic heart disease One brother living CAD Stents One sister living and in good health Medical History Condition Response NERVE DISEASE N BLINDNESS N RHEUMATIC FEVER N KIDNEY STONES N BLADDER PROBLEMS N MRSA N OTHER # 1 N POLIO N LUNG DISEASE/DISORDER N HISTORY OF DRUG ABUSE N RADIATION / CHEMOTHERAPY N COPD N Other # 2 N BLOOD DISEASES N SURGERY N EAR OR HEARING PROBLEMS N MUMPS N SHINGLES N BOWEL PROBLEMS Y DEPRESSION (INCLUDING POST ) N FAILED BACK SYNDROME N STROKE/TIA N THYROID DISEASE N ULCERS N BENIGN PROSTATIC HYPERPLASIA N MEASLES N MYOCARDIAL INFARCTION N OBESITY N GERD/NAUSEA N EXCESSIVE PERSPIRATION N ANEURYSM N URINARY/BLADDER/KIDNEY PROBLEMS N INPATIENT PSYCH CARE N CORONARY ARTERY DISEASE (CAD) N Do you have Advance directive? N ADDICTION CONCERNS N Impotence N ENDOMETRIOSIS N USE OF BLOOD THINNERS N SKIN PROBLEMS N GASTROINTESTINAL DISORDER N PARATHYROID DISEASE N PERIPHERAL VASCULAR DISEASE N MUSCLE,JOINT OR BONE PROBLEMS Y GASTROINTESTINAL BLEEDING N BLOOD CLOTS N ASTHMA N CATARACTS N ERECTILE DYSFUNCTION N ARTERIAL INSUFFICIENCY N VARICOSITIES N GI PROBLEMS N Low Testosterone N INFERTILITY N AIDS/HIV N LIVER DISEASE N MALE HYPOGONADISM N HYPERTENSION Y Deficiency N TOURETTE'S N ANXIETY DISORDER N BLOOD TRANSFUSION N ANEMIA/BLOOD DISORDER N CHRONIC EAR INFECTIONS N BRONCHITIS N TUBERCULOSIS N GLAUCOMA N FOOT PROBLEM N DIVERTICULITIS N SLEEP APNEA N CHICKENPOX N BACK INJECTIONS N INFECTIOUS DISEASE N PROSTATE N HEART ARRHYTHMIA N ESRD N INSOMNIA N HIGH CHOLESTEROL / HYPERLIPIDEMIA N EYE PROBLEMS N HYPERTHYROIDISM N PVD N NEUROLOGICAL PROBLEMS N EDEMA N CHRONIC PAIN SYNDROME N HYPOTHYROIDISM N CONSTIPATION N CAROTID BLOCKAGE N BACK / NECK PROBLEMS N HAVE YOU BEEN HOSPITALIZED OR SEEN IN [facility] IN THE PAST YEAR ? N ATHEROSCLEROSIS N BREAST PROBLEMS N DIALYSIS N POLYCYSTIC OVARIES Y ECZEMA N OSTEOPOROSIS N ARTHRITIS N NO SIGNIFICANT PAST MEDICAL HISTORY N APPENDICITIS N DIABETES, TYPE Y BAD TEETH N VON WILLIBRAND'S DISEASE N ENT N HEARTBURN / REFLUX N AUTISM SPECTRUM DISORDER (ASD) N POST LAMINECTOMY SYNDROME N HEPATITIS / LIVER DISEASE N PULMONARY DISEASE N GOUT N SLEEP DISORDER N ALZHEIMER'S DISEASE N Brain Problems N DEMENTIA N HERPES N RETINOPATHY N SEIZURES/EPILEPSY N HEADACHES/MIGRAINES N VASCULAR DISEASE N PACEMAKER N Blood Disorder N DIZZINESS N HEART DISEASE/HEART PROBLEMS N KIDNEY DISEASE N MULTIPLE SCLEROSIS N NEUROPSYCHOLOGICAL N CANCER: SPECIFY N CARDIAC ARRHYTHMIA N ANESTHESIA COMPLICATIONS N ATRIAL FIBRILLATION N Gall Stones N PULMONARY EMBOLISM N AUTOIMMUNE DISEASE N Gynecological HistoryNo gynecological history recorded. Obstetrics History GPAL:G 0 P 0 0 0 0 Immunizations Vaccine Type Date Status Note Provider Nam e and Address Organization Details Recorded Time Influenza, split virus, quadrivalent, PF 3 completed Aidan Harris MD [address] [place] [address], [place], [address], [facility] [employer] [facility] 05/03/2023 11:39:58 SARS-COV-2 (COVID-19) vaccine, UNSPECIFIED 1 completed Not Available [facility] 08/02/2022 14:23:03 SARS-COV-2 (COVID-19) vaccine, UNSPECIFIED 1 completed Not Available [facility] 08/02/2022 14:23:03 Hep A, adult 7 completed Not Available [facility] 08/02/2022 14:23:03 Hep A, adult 8 completed Not Available [facility] 08/02/2022 14:23:03 Influenza, split virus, trivalent, PF 4 completed Yenny Alonzo, RMAbhijit null, [place] - [facility] 04/30/2024 10:42:33 Past Encounters Encounter ID Performer Location Encounter Start Date Encounter Closed Date Diagnosis/Indication Diagnosis SNOMED-CT Code Diagnosis ICD10 Code Diagnosis Note [id number] Aidan Harris MD [facility] [address] [address] 08/11/2020 00:00:00 08/11/2020 11:24:08 [id number] Aidan Harris MD [facility] [address] [address] 02/09/2021 00:00:00 02/09/2021 11:16:47 [id number] Aidan Harris MD [facility] [address] [address] 09/01/2021 00:00:00 09/01/2021 12:09:10 [id number] Aidan Harris MD [facility] [address] [address] 03/02/2022 00:00:00 03/02/2022 11:47:35 [id number] Matthew Tabares MD [facility] [address] [place] [address] 05/09/2022 00:00:00 05/09/2022 11:41:39 [id number] Aidan Harris MD [facility] [address] [address] 07/20/2022 00:00:00 07/20/2022 14:47:47 [id number] Nisha Sharp MD [facility] General Surgery [address] [place] [address] 07/26/2022 00:00:00 07/26/2022 12:11:45 [id number] Matthew Tabares MD [facility] [address] [place] [address] 08/07/2022 10:28:21 08/08/2022 08:58:31 Obstructive sleep apnea syndrome 77032159 G47.33 [id number] Aidan Harris MD [facility] [address] [facility], [facility] [address] [place] [address] 08/31/2022 11:25:02 08/31/2022 17:45:45 Essential hypertension 11459160 I10 Pure hypercholesterolemia 900688686 E78.00 Type 2 pati betes mellitus 05042117 E11.9 Gastroesop hageal reflux disease 419381032 K21.9 Obstructiv e sleep apnea syndrome 94729991 G47.33 [id number] Zev Sherman MD [facility] [place] [address] [place] [address] 09/07/2022 09:35:34 09/07/2022 10:21:44 Pain of right shoulder joint 7499650166 4939420 M25.511 Tear of me dial meniscus of knee 153436906 S83.241A [id number] Nisha Sharp MD [facility] General Surgery 2043 [facility], [facility] [address] [place] [address] 11/15/2022 11:28:50 11/15/2022 12:02:53 Bile-induced gastritis 60537636 K29.60 [id number] Orly Tamayo MD [facility] [place] [address] [place] [address] 10/16/2022 08:58:07 10/16/2022 09:39:28 Uncontrolled type 2 diabetes mellitus 093123756 E11.65 a1c of 7.6%- continue metformin for insulin sensitizat ion, continue farxiga and glimepirid e as she is tolerating well. Recommende d GLP1 agonist therapy as she is having trouble at times with cravings of sweets and portion control. She does exercise at least 3 days a week at 45 minutes a time. Discussed potentiall y reducing total carb intake to 120 grams daily into 4-5 small split meals with addition of healthy protein based snack at bedtime to help reduce u.s. representative hyperglyce natan. She has no hx of pancreatit is or medullary thyroid cancer and is willing to trial on a GLP1 agonist therapy. She was advised to contact clinic if she experience s any nausea, vomiting or significan t thyroid pain / swelling or abdominal pain so we can discuss and discontinu e and potentiall y look to other therapy. Will trial on ozempic 0.25 mg SQ weekly x 4 weeks then increase to 0.5 mg SQ weekly with largest meal of that day as tolerated. Discussed carb counting and how to read food labels. Recommende d patient to utilize the diabetesfo [employer] from the ADA website to help with food preparatio n as this presents ideal carb content per meal so this will make carb counting much easier for patient. Recommende d she incorporat e natural insulin auto roller s such as pears, apples, cinnamon, jaya and sweet potatoes to help mobilize her endogenous insulin. Recommende d up to 150 minutes of moderate level activity/e xercise weekly. Fatigue 56518547 R53.83 Will send for thyroid antibodies to screen for autoimmune thyroid disease in addition to CBC, CMP, ferritin and B12/folate to screen for other potential secondary causes of fatigue. Loss of hair 703401512 L 65.9 send for testostero ne and iron panel to screen for secondary causes of hair loss. Spent up to 45 minutes preparing to see the patient (eg, review of tests), obtaining and/or reviewing separately obtained history, performing a medically appropriat e examinatio n and evaluation , counseling and educating the patient, ordering medication s, tests, along with documentin g clinical informatio n in the electronic health record, independen tly interpreti ng results and communicat ing results to the patient. RTC in 2-3 months. Patient was provided a handwritte n lab order which contains our fax number. If she chooses to go outside of the [facility] system to obtain labwork she was advised to provide our fax number and my informatio n to the lab she will be obtaining labwork from in order to have her labs properly forwarded over for me to review so there is no loss of follow up due to use of outside network. She was also advised to contact our clinic informing us that she has completed her labwork so we are aware we will need to reach out to the appropriat e laboratory to request her results be forwarded to us so I might have the ability to review and make further medical decision making in her case. She voiced understand ing. [id number] Matthew Tabares MD [facility] Pulmonolo [facility] [place] [address] [place] [address] 0 11/01/2022 12:22:08 11/01/2022 13:18:05 Obstructive sleep apnea syndrome 38441904 G47.33 [id number] Aidan Harris MD S[facility] Internal Med [facility] [address] [place] [address] 12/21/2022 10:50:12 12/21/2022 11:43:25 Essential hypertension 20843795 I10 Pure hypercholesterolemia 216838410 E78.00 Uncontroll ed type 2 diabetes mellitus 752346654 E11.65 Gastroesop hageal reflux disease 103543124 K21.9 Paresthesi a of lower extremity 447492560 R20.2 [id number] Rojelio Griffin MD [facility] [address] 02/08/2023 14:11:46 02/08/2023 14:58:39 Pain of left shoulder joint 3808318819 7632605 M25.103 [id number] Aidan Harris MD [facility] Internal Med [facility] [address] [place] [address] 05/03/2023 11:01:15 05/03/2023 11:58:15 Administration of influenza vaccine 71417113 Z23 Adult [facility] th examination 303832982 Z00.00 Depression screening 171 907589 Z13.31 Pure hypercholesterolemia 344468023 E78.00 Uncontroll ed type 2 diabetes mellitus 948952237 E11.65 [id number] Aidan Harris MD S[facility] Internal Med [facility] [address] [address] 10/31/2023 10:51:06 10/31/2023 11:13:50 Essential hypertension 93805864 I10 Pure hypercholesterolemia 167513899 E78.00 Uncontroll ed type 2 diabetes mellitus 614398156 E11.65 [id number] Aidan Harris MD [facility] Internal Med [facility] [address] [address] 01/02/2024 10:04:02 01/02/2024 15:42:57 Left trigeminal neuralgia 4674379069 2975443 G50.0 [id number] Harris MD [facility] Internal [facility] [address] [address] 04/30/2024 10:31:43 04/30/2024 11:23:47 Administration of influenza vaccine 43159787 Z23 Essential hypertension 23810834 I10 Gastroesop hageal reflux disease 720345322 K21.9 Pure hypercholesterolemia 566269845 E78.00 Type 2 pati betes mellitus 54407775 E11.9 Vitamin D deficiency 347 95596 E55.9 [id number] Harris MD [facility] Internal [facility] [address] [address] 10/22/2024 10:47:36 10/22/2024 11:32:28 General examination of patient 235551625 Z00.00 Essential hypertension 10559020 I10 Pure hypercholesterolemia 490782319 E78.00 Type 2 pati betes mellitus 63681121 E11.9 Fatigue 41589468 R53.83 Health Concerns Section Related Observation LastModified by Organization Detai ls LastModified Time None Recorded Concern Status LastModified by Organization Details LastModified Time None Recorded Advance Directives Directive None Recorded Payers Encounter Date Sequence Insurance Name Policy Number Policy Guallpa Covered Member ID Guallpa Member ID Guarantor Name 05/03/2023 1 [place] [id number] Ifeanyi Jackson [id number] Prudence R Renetta 10/31/2023 1 [place] [id number] Ifeanyi Jackson [id number] Prudence R Renetta 01/02/2024 1 [place] [id number] Ifeanyi Jackson [id number] Prudence R Renetta 04/30/2024 1 [place] [id number] Ifeanyi Jackson [id number] Prudence R Renetta 10/22/2024 1 [place] [id number] Ifeanyi Jackson [id number] Prudence Jackson Notes Date Note Type Note Provider Name and Address Organization Details Recorded Time 05/03/20 23 text/htm l Patient Name: Prudence JacksonDate Of Service: April ( 05.03.2023 ): 1975 Age: 47 There has been approximately a 9.5 lb weight loss since 12/21/2022. This represents approximately a 5.5% change in weight. Weight change attributable to lifestyle changes. Vital Signs:Blood Pressure: Sitting Rt. Arm 120/60Pulse: Sitting 89 /min and RegularRespiratory Rate: 12Height 64 in or 1.6 mWeight 164.5 lb or 74.6 kgBMI 28.2Temperature: 97 F or 36.1 CPulse Oximetry: 98 % at rest on no oxygen Chief Complaint: Addressed in HPI Problems or conditions discussed in the HPI were the only ones reviewed during the encounter.Only social and family history addressed in the HPI were reviewed during this encounter. Attendant(s): NoneConstitutional and Systemic Symptoms:none Medication Reconciliation: from medication list. Ocffaoopiuw12/08/2023: Upper endoscopy demonstrated some evidence of gastritis but no active ulcer or bleeding was noted. Should be noted that most of her symptoms that began over week ago. Which may have resolved. No serious abnormalities noted on the endoscopy. History of Present Illness In for a well patient check up. Last well patient evaluation was approximately one year. No interval complaints of any major medical problems. No hx of any chest pain, shortness of breath, nausea, vomiting, diarrhea or constitutional symptoms. Also being followed for other chronically monitored problems.Has Had A Mammogram already doneHas Had A Pap Smear already doneImmunizations Up To Date or refuses to takeNo Significant Change In Family HxColonoscopy or Cologuard: not dueFall Risk normalDepression Score: 0Hearing normalVision normalReviewed Smoking and Drug HistoryReviewed Immunization HistoryInstructed on importance of weight on diabetes, heart and other diseases aggravated by obesity. #1. Type II Diabetes: Has had no polyuria polyphagia or polydipsia. Has had no hypoglycemic like responses. No new history of any numbness, tingling, weakness or visual problems. No nausea, anorexia or other constitutional symptoms. There has been no foot problems or non healing lesions. The last HAIC was DCCT HAIC: 6.3 Calculated MB mg%. Average blood sugars unknown. Checking sugars : several times a week Medication Types Include: Metformin, GLP-1, Sulfonylureas and SGLT2 inhibitors Secondary complications include none. Macro-vascular complications include none. Therapy reviewed regarding diabetic management and include Amaryl, Farxiga, Glucophage and Ozempic Compliance: excellent Renal Protection: BATOOL inhibitors Lipid management: statins Urinary microalbumin: A1 . Ophthalmological: has seen eye doctor within the last year #2. Essential Hypertension: Stage: Stage I Interval Neurological Complaints no headaches. No shortness of breath, orthopnea or cardiovascular symptoms. No other symptoms related to end organ damage. Pressure has been under excellent control. Currently normal. No other end organ symptoms or findings. Therapy reviewed regarding management of hypertension and includes salt restriction and Hydrochlorothiazide and Lisinopril. #3. Type II Hypercholesterolaemia: Currently not taking medication. No interval complaints of any muscle pain or arthralgia. No significant liver changes with medications. Last lipid panel: excellent control. Therapy reviewed regarding treatment of cholesterol management and include diet and Crestor.Medication List Reviewed and Reconciled 05/03/2023Lisinopril 20 MG (TABLET - ORAL) One Twice A DayAmaryl 2 MG TABLET Once DailyCrestor 20 MG (TABLET - ORAL) One DailyOzempic .68 MG/ML INJECTION, SOLUTION WeeklyLasix 20 MG (TABLET - ORAL) Once DailyGlucophage 1 GM (TABLET - ORAL) One Twice A DayHydrochlorothiazide 12.5 MG (CAPSULE - ORAL) One DailyFarxiga 10 MG TABLET, FILM COATED One DailyADRs List Reviewed 05/03/2023Zocor InsomniaInvokana UtiLivalo Muscle PainVaccination and Rreblalxzqrq6549-81 Ljoxatugu7338-76 Covid ModernaSurgical HistoryTummy Tuck, Left Ulnar Nerve, CTS Bilaterl, lap CholecystectomyPreventative Testing Confirmed by Our Cqczecp0112/19/2022 HAI 6.307/12/2022 MAMMOGRAM 403/01/2023 UPPER HWFKONXQH40/16/2023 ALBUMIN 4.3 G/DL N007/20/2022 MICRO ALBUMIN <6.0 MG/L N002/23/2021 COLOGUARD 02/24/2024Social HistoryDoes not smokeDrinks sociallyWorks as a secretaryFamily HistoryMother 73 essential hypertension, Type II Diabetes and arteriosclerotic heart diseaseFather 42 arteriosclerotic heart diseaseOne brother living CAD StentsOne sister living and in good healthMenarche 11 Menopause A2 Aidan Harris MD [address] [facility], [facility] [address], [place], [address], [facility] [employer] 05/03/2023 11:45:44 10/31/19 24 text/htm l Patient Name: Prudence Finnegan Of Service: Sunday ( 10.31.2023 ): 1975 Age: 48 There has been approximately a 7.5 lb weight loss since 05/03/2023. This represents approximately a 4.6% change in weight. Weight change attributable to lifestyle changes. Vital Signs:Blood Pressure: Sitting Rt. Arm 120/82Pulse: Sitting 79 /min and RegularRespiratory Rate: 12Height 64 in or 1.6 mWeight 157 lb or 71.2 kgBMI 26.9Temperature: 97.2 F or 36.2 CDCCT HAIC: 5.1 Calculated MB mg%Pulse Oximetry: 98 % at rest on no oxygen Chief Complaint: Addressed in HPI Problems or conditions discussed in the HPI were the only ones reviewed during the encounter.Only social and family history addressed in the HPI were reviewed during this encounter. Attendant(s): NoneConstitutional and Systemic Symptoms:none Medication Reconciliation: from medication list. Uxherpnpfie99/08/2023: Upper endoscopy demonstrated some evidence of gastritis but no active ulcer or bleeding was noted. Should be noted that most of her symptoms that began over week ago. Which may have resolved. No serious abnormalities noted on the endoscopy. History of Present Illness #1. Essential Hypertension: Stage: Stage I Interval Neurological Complaints no headaches, dizziness, weakness, visual changes, ataxia, aphasia and apraxia. No shortness of breath, orthopnea or cardiovascular symptoms. No other symptoms related to end organ damage. Pressure has been under excellent control. Currently normal. No other end organ symptoms or findings. Therapy reviewed regarding management of hypertension and includes salt restriction and Hydrochlorothiazide and Lisinopril. #2. Type II Hypercholesterolaemia: Currently taking medication and tolerating well. No interval complaints of any muscle pain or arthralgia. No significant liver changes with medications. Last lipid panel: fair control. Therapy reviewed regarding treatment of cholesterol management and include diet and Crestor. #3. Type II Diabetes: Has had no polyuria polyphagia or polydipsia. Has had no hypoglycemic like responses. No new history of any numbness, tingling, weakness or visual problems. No nausea, anorexia or other constitutional symptoms. There has been no foot problems or non healing lesions. The last HAIC was [facility] HAIC: 5.1 Calculated MB mg%. Average blood sugars 100-115 mg%. Checking sugars : several times a week Medication Types Include: GLP-1, Sulfonylureas and SGLT2 inhibitors Secondary complications include none. Macro-vascular complications include none. Therapy reviewed regarding diabetic management and include Farxiga and Ozempic Compliance: good Renal Protection: BATOOL inhibitors Lipid management: statins Urinary microalbumin: A1 . Ophthalmological: has seen eye doctor within the last year Active Medication ListLisinopril 20 MG (TABLET - ORAL) One Twice A DayCrestor 20 MG (TABLET - ORAL) One DailyOzempic 2.68 MG/ML INJECTION, SOLUTION WeeklyLasix 20 MG (TABLET - ORAL) Once DailyHydrochlorothiazide 12.5 MG (CAPSULE - ORAL) One DailyFarxiga 10 MG TABLET, FILM COATED One Daily Adverse Drug Reactions ReviewedZocor InsomniaInvokana UtiLivalo Muscle Pain Vaccination and Wjsvosnopvei1227-31 Xycvbraou7469-01 Covid Moderna Surgical Nlvpryq8938-49 Tummy Nbfj7932-86 Left Ulnar Ntwik4513-56 CTS Mxghnalu1243-89 lap Cholecystectomy Preventative Bkymoye0806/08/2023 KTUSYQYGS58/20/2023 ALBUMIN 4.5 G/DL05/23/2023 MICRO ALBUMIN 19.7 MG/L 05/23/2023 HAIC 5.5 %12/08/2022 MAMMOGRAM UPPER MCVOXEQTC13/22/2021 COLOGUARD 02/24/2024 Social HistoryDoes not smokeDrinks sociallyWorks as a property condition assessor Family HistoryMother 73 essential hypertension, Type II Diabetes and arteriosclerotic heart diseaseFather 42 arteriosclerotic heart diseaseOne brother living CAD StentsOne sister living and in good healthMenarche 11 Menopause A2 TEST RESULT RANGE UNITSLIPID PANEL Date: 3CHOLESTEROL 110 140-199 MG/DLTRIGLYCERIDES 110 0-150 MG/DLHDL CHOLESTEROL 40 40- MG/DLLDL CHOLESTEROL, CALCULATED 48 0-130 MG/DL Aidan Harris MD [address] [facility], [facility] [address], [place], [address], [facility] [employer] 10/31/2023 11:09:14 01/02/20 24 text/htm l Patient Name: Prudence Finnegan Of Service: Sunday ( 01.02.2024 ): 1975 Age: 48 There has been approximately a 2 lb weight gain since 10/31/2023. This represents approximately a 1.3% change in weight. Weight change attributable to lifestyle changes. Vital Signs:Blood Pressure: Sitting Rt. Arm 120/82Pulse: Sitting 94 /min and RegularRespiratory Rate: 14Height 64 in or 1.6 mWeight 159 lb or 72.1 kgBMI 27.3Temperature: 97.6 F or 36.4 CPulse Oximetry: 97 % at rest on no oxygen Chief Complaint: Addressed in HPI Problems or conditions discussed in the HPI were the only ones reviewed during the encounter.Only social and family history addressed in the HPI were reviewed during this encounter. Attendant(s): NoneConstitutional and Systemic Symptoms:none Medication Reconciliation: from medication list. Ryfgqgwgeyy19/08/2023: Upper endoscopy demonstrated some evidence of gastritis but no active ulcer or bleeding was noted. Should be noted that most of her symptoms that began over week ago. Which may have resolved. No serious abnormalities noted on the endoscopy. History of Present Illness #1. Several day history of intermittent pain and discomfort over the left side of the parietal scalp area as long well as the frontal and ear area. This occurs in bursts of pain that come on very quickly reached a maximum intensity within a matter of seconds and then spontaneously abates. Sometimes precipitated by chewing. Similar problems years ago. Might be some variant of trigeminal neuralgia. There is no rash associated with it. There is no tenderness over the temporal arteries. There has been no associated visual disturbances.: Active Medication ListLisinopril 20 MG (TABLET - ORAL) One Twice A DayCrestor 20 MG (TABLET - ORAL) One DailyOzempic 2.68 MG/ML INJECTION, SOLUTION WeeklyLasix 20 MG (TABLET - ORAL) Once DailyHydrochlorothiazide 12.5 MG (CAPSULE - ORAL) One DailyFarxiga 10 MG TABLET, FILM COATED One Daily Adverse Drug Reactions ReviewedZocor InsomniaInvokana UtiLivalo Muscle Pain Vaccination and Cfmtjfjnxcbw0308-80 Obmphjknk9175-73 Covid Moderna Surgical Ruhhegb6362-09 Tummy Drsk1081-25 Left Ulnar Vhvmc4452-82 CTS Yutrhhjg0824-90 lap Cholecystectomy Preventative Rcicyla6306/08/2023 QZOIZFLWG86/20/2023 ALBUMIN 4.5 G/DL05/23/2023 MICRO ALBUMIN 19.7 MG/L 05/23/2023 HAIC 5.5 %12/08/2022 MAMMOGRAM /01/2023 UPPER ZYFNSKISV20/22/2021 COLOGUARD 02/24/2024 Social HistoryDoes not smokeDrinks sociallyWorks as a property condition assessor Family HistoryMother 73 essential hypertension, Type II Diabetes and arteriosclerotic heart diseaseFather 42 arteriosclerotic heart diseaseOne brother living CAD StentsOne sister living and in good healthMenarche 11 Menopause A2 Aidan Harris MD [address] [facility], [facility] [address], [place], [address], [place] [employer] [facility] 01/02/2024 10:19:59 04/30/20 24 text/htm l Patient Name: Prudence Finnegan Of Service: Sunday ( 04.30.2024 ): 1975 Age: 48 There has been approximately a 2 lb weight gain since 01/02/2024. This represents approximately a 1.3% change in weight. Weight change attributable to lifestyle changes. Vital Signs:Blood Pressure: Sitting Rt. Arm 104/70Pulse: Sitting 96 /min and RegularRespiratory Rate: 16Height 64 in or 1.6 mWeight 161 lb or 73.0 kgBMI 27.6Temperature: 97 F or 36.1 CDCCT HAIC: 5.5 Calculated MB mg%Pulse Oximetry: 97 % at rest on no oxygen Chief Complaint: Addressed in HPI Problems or conditions discussed in the HPI were the only ones reviewed during the encounter.Only social and family history addressed in the HPI were reviewed during this encounter. Attendant(s): NoneConstitutional and Systemic Symptoms:none Medication Reconciliation: from medication list. Hhyjxqoipqk89/08/2023: Upper endoscopy demonstrated some evidence of gastritis but no active ulcer or bleeding was noted. Should be noted that most of her symptoms that began over week ago. Which may have resolved. No serious abnormalities noted on the endoscopy. History of Present Illness #1. Essential Hypertension: Stage: Stage I Interval Neurological Complaints no headaches, dizziness, weakness, visual changes, ataxia, aphasia and apraxia. No shortness of breath, orthopnea or cardiovascular symptoms. No other symptoms related to end organ damage. Pressure has been under excellent control. Currently normal. No other end organ symptoms or findings. Therapy reviewed regarding management of hypertension and includes salt restriction and Hydrochlorothiazide, Lasix and Lisinopril. #2. Type II Hypercholesterolaemia: Currently taking medication and tolerating well. No interval complaints of any muscle pain or arthralgia. No significant liver changes with medications. Last lipid panel: excellent control. Therapy reviewed regarding treatment of cholesterol management and include diet and Crestor. #3. Type II Diabetes: Has had no polyuria polyphagia or polydipsia. Has had no hypoglycemic like responses. No new history of any numbness, tingling, weakness or visual problems. No nausea, anorexia or other constitutional symptoms. There has been no foot problems or non healing lesions. [facility]: [facility].5 Calculated MB mg%. CGM: No. Average blood sugars 100-115 mg%. Checking sugars : several times a week. Medication Types Include: GLP-1 and SGLT2 inhibitors Secondary complications include none. Macro-vascular complications include none. Therapy reviewed regarding diabetic management and include Farxiga and Ozempic Compliance: good Renal Protection: BATOOL inhibitors Lipid management: statins Urinary microalbumin: A1 . Ophthalmological: has seen eye doctor within the last year. Control: Below 6.2 #4. Hx of esophageal reflux currently stable. Hx of Complications: none The severity, duration and intensity of symptoms have remained the same. Frequency: infrequent Treatment consists medications taken on no regular basis. Current therapy includes no medication. There has been no nausea, eructation, vomiting, hematemesis, dysphagia, velopharyngeal insufficiency and odynophagia. No change in he frequency or intensity of symptoms. Has had no melena. Has had no . Discussed use of H2 antagonists NA. Active Medication ListLisinopril 20 MG (TABLET - ORAL) One DailyCrestor 20 MG (TABLET - ORAL) One DailyOzempic 2.68 MG/ML INJECTION, SOLUTION WeeklyLasix 20 MG (TABLET - ORAL) Once DailyHydrochlorothiazide 12.5 MG (CAPSULE - ORAL) One DailyFarxiga 10 MG TABLET, FILM COATED One Daily Adverse Drug Reactions ReviewedZocor InsomniaInvokana UtiLivalo Muscle Pain Vaccination and Immunization( ) 2023- INFLUENZA(X) 2020- COVID MODERNA Surgical Emasfge3716-12 Tummy Dogi5936-29 Left Ulnar Zpkhv4742-10 CTS Uhlpfbsv0031-48 lap Cholecystectomy Preventative Testing( ) 02/28/2024 Mammogram 02/27/2025( ) 06/08/2023 Optometry( ) 05/23/2023 Albumin 4.5 G/DL( ) 05/23/2023 Micro Albumin 19.7 MG/L H( ) 05/23/2023 HAIC 5.5 %(X) 08/09/2022 Upper Endoscopy 08/10/2023(X) 02/23/2021 Cologuard 02/24/2024 Social HistoryDoes not smokeDrinks sociallyWorks as a property condition assessor Family HistoryMother 75 essential hypertension, Type II Diabetes and arteriosclerotic heart diseaseFather 42 arteriosclerotic heart diseaseOne brother living CAD StentsOne sister living and in good healthMenarche 11 Menopause A2 Aidan Harris MD [address] [facility] [facility] [address], [place], [address], [facility] [employer] 04/30/2024 10:50:21 10/23/19 25 text/htm l Patient Name: Prudence Finnegan Of Service: Sunday ( 10.22.2024 ): 1975 Age: 49 There has been approximately a 5 lb weight gain since 04/30/2024. This represents approximately a 3.1% change in weight. Weight change attributable to lifestyle changes. Vital Signs:Blood Pressure: Sitting Rt. Arm 120/78Pulse: Sitting 91 /min and RegularRespiratory Rate: 16Height 64 in or 1.6 mWeight 166 lb or 75.3 kgBMI 28.5Temperature: 97 F or 36.1 CPulse Oximetry: 97 % at rest on no oxygen Chief Complaint: Addressed in HPI Problems or conditions discussed in the HPI were the only ones reviewed during the encounter.Only social and family history addressed in the HPI were reviewed during this encounter. Attendant(s): NoneConstitutional and Systemic Symptoms:none Medication Reconciliation: from medication list. History of Present Illness In for a well patient check up. Last well patient evaluation was approximately one year. No interval complaints of any major medical problems. No hx of any chest pain, shortness of breath, nausea, vomiting, diarrhea or constitutional symptoms. Also being followed for other chronically monitored problems.Has Had A Mammogram already doneHas Had A Pap Smear already doneImmunizations Up To Date or refuses to takeNo Significant Change In Family HxColonoscopy or Cologuard: not dueFall Risk normalHearing normalVision normalReviewed Smoking and Drug HistoryReviewed Immunization HistoryInstructed on importance of weight on diabetes, heart and other diseases aggravated by obesity. #1. Essential Hypertension: Stage: Stage I Interval Neurological Complaints no headaches, dizziness, weakness, visual changes, ataxia, aphasia and apraxia. No shortness of breath, orthopnea or cardiovascular symptoms. No other symptoms related to end organ damage. Pressure has been under fair control. Currently normal. No other end organ symptoms or findings. Therapy reviewed regarding management of hypertension and includes salt restriction and Hydrochlorothiazide, Lasix and Lisinopril. #2. Type II Hypercholesterolaemia: Currently not taking medication. No interval complaints of any muscle pain or arthralgia. No significant liver changes with medications. Last lipid panel: no testing done recently. Therapy reviewed regarding treatment of cholesterol management and include cannot tolerate statins or related agents and Crestor. #3. Type II Diabetes: Has had no polyuria polyphagia or polydipsia. Has had no hypoglycemic like responses. No new history of any numbness, tingling, weakness or visual problems. No nausea, anorexia or other constitutional symptoms. There has been no foot problems or non healing lesions. The last HAIC was [facility] HAI: 6.1 Calculated MB mg%. CGM: No. Average blood sugars 100-115 mg%. Checking sugars : several times a week. Medication Types Include: GLP-1 and SGLT2 inhibitors Secondary complications include none. Macro-vascular complications include none. Therapy reviewed regarding diabetic management and include Farxiga and Ozempic Compliance: good Renal Protection: BATOOL inhibitors Lipid management: statins Urinary microalbumin: A1 . Ophthalmological: has seen eye doctor within the last year. Control: Below 6.2 Wellness Evaluation PHQ-2 Score Last Two Weeks Last Two Weeks: 0: Not at all 1: Several Days 2: More than half 3: Almost Every day #1. Little interest or pleasure in doing things Score: 0#2. Feeling down, depressed, or hopeless Score: 0Score 0FAST Stage: 1 No functional decline Basic ADLS Ambulation Normal YesEating YesBed Transfer YesWalker NoCane NoFalls NoMultiple Falls NoBathing and Showering YesDressing YesFeeding YesFunctional Mobility YesPersonal Hygiene YesToilet Hygiene YesHome Safety Yes Instrumental ADLS House Work YesTaking Medications YesShopping YesTelephone YesUsing Technology YesTransportation YesPreparing Meals Yes Additional Topics Advanced Directives Not DiscussedLiving Will Not Discussed Social and Physical Activities Drinking History: NoneExercise 20 Minutes per Week: Yes, some of timeDifficulty Driving Car: NoSmoking History: NoOther Problems: None,Falling,Orthostatic,Troubl e Eating,Teeth Denture Problems,Problems using Telephone,Tiredness or fatigue No Living Will on File! Active Medication ListLisinopril 20 MG (TABLET - ORAL) One DailyCrestor 20 MG (TABLET - ORAL) One DailyOzempic 2.68 MG/ML INJECTION, SOLUTION WeeklyLasix 20 MG (TABLET - ORAL) Once DailyHydrochlorothiazide 12.5 MG (CAPSULE - ORAL) One DailyFarxiga 10 MG TABLET, FILM COATED One Daily Adverse Drug Reactions ReviewedZocor InsomniaInvokana UtiLivalo Muscle Pain Vaccination and ImmunizationImmunizations and Vaccinations Discussed and Implemented if feasible In the Office. Else referred to pharmacies. ( ) 2023- INFLUENZA(X) 2020-08 COVID MODERNA Surgical Jbluycl8880-51 Tummy Xggm1358-39 Left Ulnar Vxvda3847-78 CTS Djeaemsd8436-17 lap Cholecystectomy Preventative TestingPreventative Testing Discussed and Scheduled if Acceptable to Patient ( ) 07/21/2024 Albumin 4.5 G/DL N( ) 07/21/2024 Micro Albumin 1.1 MG/DL N( ) 07/21/2024 HAIC 6.1 % OF TOTAL HGB H( ) 05/13/2024 Cologuard 05/13/2027( ) 02/28/2024 Mammogram 02/27/2025( ) 06/08/2023 Optometry( ) 08/09/2022 Upper Endoscopy Social HistoryDoes not smokeDrinks sociallyWorks as a property condition assessor Family HistoryMother 75 essential hypertension, Type II Diabetes and arteriosclerotic heart diseaseFather 42 arteriosclerotic heart diseaseOne brother living CAD StentsOne sister living and in good healthMenarche 11 Menopause A2 TEST RESULT RANGE UNITSCBC (INCLUDES DIFF/PLT) Date: 07/21/2024WHITE BLOOD CELL COUNT 8.0 3.8-10.8 THOUSAND/ULHEMOGLOBIN 14.2 11.7-15.5 G/DLHEMATOCRIT 41.3 35.0-45.0 %PLATELET COUNT 243 140-400 THOUSAND/ULCOMPREHENSIVE METABOLIC PANEL, PLASMA Date: 07/21/2024SODIUM 139 135-146 MMOL/LPOTASSIUM 3.6 3.4-4.8 MMOL/LGLUCOSE 171 65-99 MG/DLUREA NITROGEN (BUN) 12 7-25 MG/DLCREATININE 0.80 0.50-1.03 MG/DLEGFR 90 > OR = 60 ML/MIN/1.18P1MHPRBDYDS, TOTAL 0.6 0.2-1.2 MG/DLALKALINE PHOSPHATASE 80 37-153 U/LAST 19 10-35 U/LALT 19 6-29 U/LHEMOGLOBIN A1C Date: 07/21/2024LIPID PANEL, STANDARD Date: 07/21/2024HOLESTEROL, TOTAL 134 <200 MG/DLHDL CHOLESTEROL 46 > OR = 50 MG/DLTRIGLYCERIDES 130 <150 MG/DLLDL-CHOLESTEROL 67 MG/DL (CALC)T4, FREE Date: 07/21/2024T4, FREE 1.2 0.8-1.8 NG/DLTSH Date: 07/21/2024TSH 1.03 MIU/LVITAMIN D,25-OH,TOTAL,IA Date: 07/21/2024VITAMIN D,25-OH,TOTAL,IA 30 30-100 NG/ML Aidan Harris MD [address] [facility] [facility] [address], [place], [address], [place] [facility] 10/22/2024 11:25:42 OBGyn Episode No OBEpisode recorded.
--- OUTSIDE RECORDS SUMMARY | 2024-11-11 15:57 | XMS_ITS | CONTINUITY OF CARE DOCUMENT ---
Author Name latishazulayriki davis Address Unknown Organization [facility] Address [id number] [place] [address] [address] [place] [address] Phone [phone] Care Team Providers Care Inspector And Hand Packager Name Role Phone Connor Pérez MD Unavailable ERNESTO DOWNING MD Unavailable [phone] ERNESTO DOWNING MD Unavailable [phone] VITAL SIGNS Date Observation Value Provider blood pressure, diastolic 80 mm[Hg] Monique seph [place] blood pressure, systolic 134 mm[Hg] Balbir eph [place] SOCIAL HISTORY Date Observation Value Provider smoking status never Bg [place] FUNCTIONAL STATUS Date Observation Value Provider periodic limb movement index absent (0) [facility]g [place] INSURANCE PROVIDERS Payer name Policy type / Coverage type [employer] red democr[employer] [facility] [id number]
== END 2024-11-11 14:28 | disposition home or self-care (01) ==
PROVIDERS: PCP Internal Medicine; Visit Provider Internal Medicine
DX: R09.89 Other specified symptoms and signs involving the circulatory and respiratory systems (principal)
CPT/HCPCS: 93880